=== PATIENT | male | born 1960 | race American Indian/Alaskan Native ===

== ENCOUNTER 2018-02-27 17:17 | Inpatient (IN) | payer MEDICAID ==
[2018-02-27] MEDS ORDERED: ATIVAN ONE ×2 (18:17→18:32)
[2018-02-27] MEDS ORDERED: ATIVAN IM ONE (19:00)
[2018-02-27] MEDS ORDERED: ATIVAN IV ONE (19:30)
[2018-02-27] MEDS ORDERED: ATIVAN IV PRN (19:42)
[2018-02-27] MEDS ORDERED: VITAMIN B-1 100 MG, FOLVITE 1 MG, INFUVITE 10 ML, MAGNESIUM SULFATE 2 GM in NACL 0.9% 1... IV ONE (19:43)
[2018-02-27] MEDS ORDERED: KEPPRA 1,000 MG/NS 0.75% 100ML 1,000 MG/100 ML BAG IV ONE (19:43)
--- NOTE | 2018-02-27 19:52 | Emergency Department Report ---
HPI - General Chief Complaint: Seizure Time Seen by Provider: 02/27/18 19:32 - HPI HPI: Room 25 The patient is 58-year-old male presenting with chief complaint seizure. The patient has a history of heavy alcohol use is reported the patient last consumed yesterday. Family was at home when the "heard a noise." When they went to investigate they felt the patient have any generalized tonic-clonic seizure. EMS was called and transported the patient to the ED. The patient was reportedly combative/agitated requiring Ativan. Family states the patient has a history of alcoholism and usually consumes 5 beers and "a fifth" of wine daily. Patient last consumed yesterday Location: Central nervous system Duration: [See above] Quality: Generalized tonic-clonic Severity: Moderate Modifying factors: [see above] Context: [see above] Mode of transportation: [not driving] ED Past Medical Hx - Past Medical History Hx Hypertension: Yes Hx Seizures: Yes Additional medical history: SEIZURE, ETOH - Family History Family history: no significant - Social History Smoking Status: Never Smoker Substance Use Type: None (denies illicit drug use), Alcohol (consumes 5 beers and "a fifth" of wine daily) - Medications Home Medications: Home Medications Medication Instructions Recorded Confirmed Last Taken Type Folic Acid [Folvite] 1 mg PO QDAY #30 tablet 02/20/18 Unknown Rx Hydrochlorothiazide [HCTZ] 12.5 mg PO QDAY #30 capsule 02/20/18 Unknown Rx Multivitamin Tab [Multiple Vitamin 1 each PO QDAY #30 tablet 02/20/18 Unknown Rx TAB (Theragran)] Thiamine [Vitamin B-1] 100 mg PO QDAY #30 tablet 02/20/18 Unknown Rx amLODIPine [Norvasc] 10 mg PO QDAY #30 tablet 02/20/18 Unknown Rx levETIRAcetam [Keppra TAB] 750 mg PO BID #60 tablet 02/20/18 Unknown Rx ED Review of Systems ROS: Stated complaint: SEIZURE Other details as noted in HPI Constitutional: no symptoms reported Eyes: denies: eye pain ENT: denies: throat pain Cardiovascular: denies: chest pain Gastrointestinal: denies: abdominal pain Genitourinary: denies: dysuria Musculoskeletal: denies: back pain Neurological: other (seizure). denies: headache Physical Exam - Physical Exam Vital Signs: Vital Signs 02/27/18 02/27/18 02/27/18 15:31 15:36 15:40 Temperature Pulse Rate Respiratory Rate Blood Pressure 137/89 137/89 137/89 O2 Sat by Pulse 94 95 96 Oximetry 02/27/18 02/27/18 02/27/18 15:46 15:50 15:56 Temperature Pulse Rate Respiratory Rate Blood Pressure 137/89 137/89 137/89 O2 Sat by Pulse 96 96 95 Oximetry 02/27/18 02/27/18 02/27/18 16:00 16:06 16:10 Temperature Pulse Rate Respiratory Rate Blood Pressure 137/89 137/89 137/89 O2 Sat by Pulse 97 96 96 Oximetry 02/27/18 02/27/18 02/27/18 16:16 16:20 16:26 Temperature Pulse Rate Respiratory Rate Blood Pressure 137/89 137/89 137/89 O2 Sat by Pulse 97 97 97 Oximetry 02/27/18 02/27/18 02/27/18 16:30 16:36 16:40 Temperature Pulse Rate Respiratory Rate Blood Pressure 137/89 137/89 137/89 O2 Sat by Pulse 97 93 97 Oximetry 02/27/18 02/27/18 02/27/18 16:46 16:50 16:56 Temperature Pulse Rate Respiratory Rate Blood Pressure 137/89 137/89 137/89 O2 Sat by Pulse 97 98 97 Oximetry 02/27/18 02/27/18 02/27/18 17:00 17:06 17:10 Temperature Pulse Rate Respiratory Rate Blood Pressure 137/89 137/89 137/89 O2 Sat by Pulse 97 96 96 Oximetry 02/27/18 02/27/18 02/27/18 17:16 17:20 18:27 Temperature Pulse Rate 120 H Respiratory 25 H Rate Blood Pressure 137/89 137/89 137/89 O2 Sat by Pulse 97 97 Oximetry 02/27/18 02/27/18 02/27/18 18:30 18:36 18:40 Temperature Pulse Rate 122 H 116 H 108 H Respiratory 16 24 21 Rate Blood Pressure 137/89 164/109 164/109 O2 Sat by Pulse 97 96 98 Oximetry 02/27/18 02/27/18 02/27/18 18:45 18:50 18:56 Temperature Pulse Rate 107 H 104 H 105 H Respiratory 21 22 21 Rate Blood Pressure 160/102 160/102 160/102 O2 Sat by Pulse 97 97 97 Oximetry 02/27/18 02/27/18 02/27/18 19:00 19:06 19:10 Temperature Pulse Rate 104 H 102 H 100 H Respiratory 23 19 21 Rate Blood Pressure 152/99 152/99 152/99 O2 Sat by Pulse 97 97 98 Oximetry 02/27/18 02/27/18 19:15 19:20 Temperature 98.9 F Pulse Rate 104 H 104 H Respiratory 21 22 Rate Blood Pressure 155/100 155/100 O2 Sat by Pulse 97 96 Oximetry Physical Exam: GENERAL: The patient is well-developed well-nourished male lying on stretcher not appearing to be in acute distress. [] HEENT: Normocephalic. Atraumatic. Extraocular motions are intact. Patient has moist mucous membranes. NECK: Supple. Trachea midline CHEST/LUNGS: Clear to auscultation. There is no respiratory distress noted. HEART/CARDIOVASCULAR: Regular. There is tachycardia. There is no gallop rub or murmur. ABDOMEN: Abdomen is soft, nontender. Patient has normal bowel sounds. There is no abdominal distention. SKIN: There is no rash. There is no edema. There is no diaphoresis. NEURO: The patient is awake and oriented. Patient seen somewhat sedate secondary to Ativan administration. The patient offers intermittently with cranial nerve exam. Cranial nerves II through XII grossly intact. The patient has no focal neurologic deficits. The patient has normal speech. MUSCULOSKELETAL: There is no evidence of acute injury. ED Course Vital Signs 02/27/18 02/27/18 02/27/18 15:31 15:36 15:40 Temperature Pulse Rate Respiratory Rate Blood Pressure 137/89 137/89 137/89 O2 Sat by Pulse 94 95 96 Oximetry 02/27/18 02/27/18 02/27/18 15:46 15:50 15:56 Temperature Pulse Rate Respiratory Rate Blood Pressure 137/89 137/89 137/89 O2 Sat by Pulse 96 96 95 Oximetry 02/27/18 02/27/18 02/27/18 16:00 16:06 16:10 Temperature Pulse Rate Respiratory Rate Blood Pressure 137/89 137/89 137/89 O2 Sat by Pulse 97 96 96 Oximetry 02/27/18 02/27/18 02/27/18 16:16 16:20 16:26 Temperature Pulse Rate Respiratory Rate Blood Pressure 137/89 137/89 137/89 O2 Sat by Pulse 97 97 97 Oximetry 02/27/18 02/27/18 02/27/18 16:30 16:36 16:40 Temperature Pulse Rate Respiratory Rate Blood Pressure 137/89 137/89 137/89 O2 Sat by Pulse 97 93 97 Oximetry 02/27/18 02/27/18 02/27/18 16:46 16:50 16:56 Temperature Pulse Rate Respiratory Rate Blood Pressure 137/89 137/89 137/89 O2 Sat by Pulse 97 98 97 Oximetry 02/27/18 02/27/18 02/27/18 17:00 17:06 17:10 Temperature Pulse Rate Respiratory Rate Blood Pressure 137/89 137/89 137/89 O2 Sat by Pulse 97 96 96 Oximetry 02/27/18 02/27/18 02/27/18 17:16 17:20 18:27 Temperature Pulse Rate 120 H Respiratory 25 H Rate Blood Pressure 137/89 137/89 137/89 O2 Sat by Pulse 97 97 Oximetry 02/27/18 02/27/18 02/27/18 18:30 18:36 18:40 Temperature Pulse Rate 122 H 116 H 108 H Respiratory 16 24 21 Rate Blood Pressure 137/89 164/109 164/109 O2 Sat by Pulse 97 96 98 Oximetry 02/27/18 02/27/18 02/27/18 18:45 18:50 18:56 Temperature Pulse Rate 107 H 104 H 105 H Respiratory 21 22 21 Rate Blood Pressure 160/102 160/102 160/102 O2 Sat by Pulse 97 97 97 Oximetry 02/27/18 02/27/18 02/27/18 19:00 19:06 19:10 Temperature Pulse Rate 104 H 102 H 100 H Respiratory 23 19 21 Rate Blood Pressure 152/99 152/99 152/99 O2 Sat by Pulse 97 97 98 Oximetry 02/27/18 02/27/18 19:15 19:20 Temperature 98.9 F Pulse Rate 104 H 104 H Respiratory 21 22 Rate Blood Pressure 155/100 155/100 O2 Sat by Pulse 97 96 Oximetry ED Medical Decision Making - Lab Data Result diagrams: 02/27/18 19:43 02/27/18 19:43 Laboratory Tests 02/27/18 02/27/18 02/27/18 19:43 19:43 19:43 WBC 7.2 RBC 3.88 Hgb 13.4 Hct 39.5 MCV 102 H MCH 34 H MCHC 34 RDW 14.3 Plt Count 325 Sodium 138 Potassium 3.2 L Chloride 92.3 L Carbon Dioxide 24 Anion Gap 25 BUN 9 Creatinine 0.8 Estimated GFR > 60 BUN/Creatinine Ratio 11 Glucose 120 H Calcium 9.6 Magnesium 1.80 Total Bilirubin 0.80 AST 49 H ALT 47 Alkaline Phosphatase 88 Total Creatine Kinase 318 H Total Protein 7.9 Albumin 4.3 Albumin/Globulin Ratio 1.2 Plasma/Serum Alcohol < 0.01 - Radiology Data Radiology results: report reviewed (CT head), image reviewed (CT head) [facility] [address] [place] [address] Cat Scan Report Signed Patient: RIVAS JAMIL MR#: [id number] : 1959 Acct:[id number] Age/Sex: 58 / M ADM Date: 02/27/18 Loc: ED Attending Dr: Ordering Physician: DANIEL ELIAS MD Date of Service: 02/27/18 Procedure(s): CT head/brain wo con Accession Number(s): [id number] cc: DANIEL ELIAS MD FINAL REPORT PROCEDURE: CT HEAD/BRAIN WO CON TECHNIQUE: Computerized tomography of the head was performed without contrast material. HISTORY: alcohol withdrawal, seizure COMPARISON: No prior studies are available for comparison. FINDINGS: Skull and scalp: Normal. Paranasal sinuses: Small air-fluid level is noted in the right maxillary sinus.. Ventricles and subarachnoid spaces: Are prominent consistent with cerebral atrophy appropriate for patient's age.. Cerebrum: Moderate degree bilateral cerebral nonspecific white matter hypodensity is noted most likely representing chronic microangiopathy. Old lacunar infarcts are noted involving bilateral basal ganglia.. An acute intra-axial or extra-axial hemorrhage is not identified. There is no mass effect.. Cerebellum and brainstem: No evidence of hemorrhage, acute infarction or mass. Vasculature: Normal. Comments: None. IMPRESSION: Old lacunar infarcts bilateral basal ganglia No acute intracranial abnormality Small air-fluid level in the right maxillary sinus is suspicious for acute right maxillary sinusitis. Transcribed By: [facility] Dictated By: LEORA NAVARRO Electronically Authenticated By: LEORA NAVARRO Signed Date/Time: 02/27/182148 DD/ 48 TD/TT: 02/27/182148 - Differential Diagnosis alcohol withdrawal Critical care attestation.: If time is entered above; I have spent that time in minutes in the direct care of this critically ill patient, excluding procedure time. ED Disposition Clinical Impression: Alcohol withdrawal seizure, Sinusitis Disposition: OP ADMIT IP TO THIS HOSP Is pt being admited?: Yes Does the pt Need Aspirin: Yes Condition: Fair Referrals: PRIMARY CARE,MD [Primary Care Provider] - 3-5 Days Time of Disposition: 22:11 (hospitalist paged (Dr Nanette Riley))
[2018-02-27 20:03] LABS: Hematocrit 39.5 % (35.5-45.6); Hemoglobin 13.4 gm/dl (11.8-15.2); Mean Corpuscular HGB Conc 34 % (32-34); Mean Corpuscular Hemoglobin 34 pg (28-32); Mean Corpuscular Volume 102 fl (84-94); Platelet Count 325 K/mm3 (140-440); Red Blood Count 3.88 M/mm3 (3.65-5.03); Red Cell Distribution Width 14.3 % (13.2-15.2)
[2018-02-27] MEDS ORDERED: CATAPRES PO ONE (20:10)
[2018-02-27] MEDS: ATIVAN IV PRN (20:28)
[2018-02-27 21:10] LABS: Alanine Aminotransferase 47 units/L (7-56); Albumin 4.3 g/dL (3.9-5); BUN/Creatinine Ratio 11; Blood Urea Nitrogen 9 mg/dL (9-20); Calcium 9.6 mg/dL (8.4-10.2); Hemolysis Index 9
--- NOTE | 2018-02-27 21:53 | Cat Scan Report ---
FINAL REPORT PROCEDURE: CT HEAD/BRAIN WO CON TECHNIQUE: Computerized tomography of the head was performed without contrast material. HISTORY: alcohol withdrawal, seizure COMPARISON: No prior studies are available for comparison. FINDINGS: Skull and scalp: Normal. Paranasal sinuses: Small air-fluid level is noted in the right maxillary sinus.. Ventricles and subarachnoid spaces: Are prominent consistent with cerebral atrophy appropriate for patient's age.. Cerebrum: Moderate degree bilateral cerebral nonspecific white matter hypodensity is noted most likely representing chronic microangiopathy. Old lacunar infarcts are noted involving bilateral basal ganglia.. An acute intra-axial or extra-axial hemorrhage is not identified. There is no mass effect.. Cerebellum and brainstem: No evidence of hemorrhage, acute infarction or mass. Vasculature: Normal. Comments: None. IMPRESSION: Old lacunar infarcts bilateral basal ganglia No acute intracranial abnormality Small air-fluid level in the right maxillary sinus is suspicious for acute right maxillary sinusitis.
[2018-02-27] MEDS ORDERED: ROCEPHIN/NS 1 GM/50 ML 1 GM/50 ML BAG IV ONE (22:10)
[2018-02-27] MEDS ORDERED: ASPIRIN PO ONE (22:12)
[2018-02-27] MEDS ORDERED: cefTRIAXone 1 GM in NACL 0.9% 20 ML IV ONE (22:15)
[2018-02-27] MEDS ORDERED: TYLENOL PO PRN (23:35)
[2018-02-27] MEDS ORDERED: ZOFRAN IV PRN (23:35)
[2018-02-27] MEDS ORDERED: SODIUM CHLORIDE FLUSH SYRINGE 10 ML IV PRN (23:35)
--- NOTE | 2018-02-27 23:39 | History and Physical Report ---
History of Present Illness Date of examination: 02/27/18 History of present illness: 58-year-old man with history of hypertension, alcohol abuse comes in for seizure at home. In the ER, he had another seizure and was given ativan, he is sedated. Old chart reviewed, ROS unobtainable. PAST MEDICAL HISTORY: hypertension, alcohol abuse PAST SURGICAL HISTORY: Unknown SOCIAL HISTORY: Unknown FAMILY HISTORY: Unknown Medications and Allergies Allergies Allergy/AdvReac Type Severity Reaction Status Date / Time No Known Allergies Allergy Unverified 02/16/18 10:18 Home Medications Medication Instructions Recorded Confirmed Last Taken Type Folic Acid [Folvite] 1 mg PO QDAY #30 tablet 02/20/18 Unknown Rx Hydrochlorothiazide [HCTZ] 12.5 mg PO QDAY #30 capsule 02/20/18 Unknown Rx Multivitamin Tab [Multiple Vitamin 1 each PO QDAY #30 tablet 02/20/18 Unknown Rx TAB (Theragran)] Thiamine [Vitamin B-1] 100 mg PO QDAY #30 tablet 02/20/18 Unknown Rx amLODIPine [Norvasc] 10 mg PO QDAY #30 tablet 02/20/18 Unknown Rx levETIRAcetam [Keppra TAB] 750 mg PO BID #60 tablet 02/20/18 Unknown Rx Active Meds: Active Medications Thiamine HCl 100 mg/ Folic Acid 1 mg/ Multivitamins/Minerals 10 ml/ Magnesium Sulfate 2 gm/ Sodium Chloride 1,015.2 mls @ 250 mls/hr IV ONCE ONE Stop: 02/27/18 23:46 Last Admin: 02/27/18 20:46 Dose: 250 mls/hr Lorazepam (Ativan) 2 mg IV Q1HR PRN PRN Reason: CIWA-Ar 8-15 Last Admin: 02/27/18 20:28 Dose: 2 mg Lorazepam (Ativan) 4 mg IV Q1HR PRN PRN Reason: CIWA-Ar 16-25 Lorazepam (Ativan) 4 mg IV Q15MIN PRN PRN Reason: CIWA-Ar >25 Exam - Physical Exam Narrative exam: Gen. appearance: Patient lying in bed in no acute distress, on BIPAP HEENT: Normocephalic/atraumatic, pupils equal round reactive to light, unable to do extra occular movement, no scleral icterus, no JVD or thyromegaly or nodule, neck is supple, mucous membrane moist, no erythema or exudate Heart: S1-S2, regular rate and rhythm Lungs:Clear anteriorly, breathing comfortable Abdomen: Positive bowel sounds, nontender, nondistended, no organomegaly Extremities: No edema, cyanosis, clubbing Neuro:: sedated Skin: No rash, nodules, warm dry - Constitutional Vitals: Temp Pulse Resp BP Pulse Ox 98.9 F 104 H 20 163/105 97 02/27/18 19:20 02/27/18 19:40 02/27/18 20:30 02/27/18 20:00 02/27/18 20:30 Results - Labs CBC & Chem 7: 02/27/18 19:43 02/27/18 19:43 Labs: Abnormal lab results 02/27/18 02/27/18 Range/Units 19:43 19:43 MCV 102 H (84-94) fl MCH 34 H (28-32) pg Potassium 3.2 L (3.6-5.0) mmol/L Chloride 92.3 L (98-107) mmol/L Glucose 120 H (75-100) mg/dL AST 49 H (5-40) units/L Total Creatine Kinase 318 H (55-170) units/L - Imaging and Cardiology CT Scan - head: report reviewed Assessment and Plan Assessment Alcohol withdrawal/DTS Alcohol Abuse Hypertension hypokalemia Plan Start IV fluid, CIWA protocol with IV ativan, folic acid, thiamine Replete potassium, check magnesium IV hydralazine for blood pressure control DVt prophalaxis
[2018-02-28] MEDS: ATIVAN IV PRN ×4 (01:24→14:49)
[2018-02-28] MEDS: APRESOLINE IV PRN ×2 (01:24→21:35)
[2018-02-28 07:20] LABS: Basophils # (Auto) 0.1 K/mm3 (0.0-0.1); Basophils % (Auto) 0.8 % (0.0-1.8); Eosinophils % (Auto) 0.4 % (0.0-4.3); Hematocrit 38.4 % (35.5-45.6); Hemoglobin 12.7 gm/dl (11.8-15.2); Lymphocytes # (Auto) 1.2 K/mm3 (1.2-5.4); Lymphocytes % (Auto) 17.2 % (13.4-35.0); Mean Corpuscular HGB Conc 33 % (32-34); Mean Corpuscular Hemoglobin 34 pg (28-32); Mean Corpuscular Volume 103 fl (84-94); Monocytes # (Auto) 0.6 K/mm3 (0.0-0.8); Monocytes % (Auto) 9.5 % (0.0-7.3); Platelet Count 313 K/mm3 (140-440); Red Blood Count 3.74 M/mm3 (3.65-5.03); Red Cell Distribution Width 14.2 % (13.2-15.2)
[2018-02-28 07:42] LABS: BUN/Creatinine Ratio 5; Blood Urea Nitrogen 2 mg/dL (9-20); Calcium 8.8 mg/dL (8.4-10.2); Hemolysis Index 2
[2018-02-28] MEDS: FOLVITE PO SCH (10:01)
[2018-02-28] MEDS: VITAMIN B-1 PO SCH (10:01)
[2018-02-28] MEDS: NACL 0.9% 1000 ML 1,000 ML IV SCH ×2 (10:02→21:36)
[2018-02-28] MEDS: SODIUM CHLORIDE FLUSH SYRINGE 10 ML IV SCH ×2 (10:02→21:40)
--- NOTE | 2018-02-28 15:29 | Progress Note ---
Assessment and Plan Assessment and plan: 58-year-old man with history of hypertension, alcohol abuse comes in for seizure at home. In the ER, he had another seizure and was given ativan, he is sedated. Old chart reviewed, ROS unobtainable. PAST MEDICAL HISTORY: hypertension, alcohol abuse Assessment Alcohol withdrawal/DTS Alcohol Abuse Hypertension hypokalemia Plan Start IV fluid, CIWA protocol with IV ativan, folic acid, thiamine Replete potassium, check magnesium IV hydralazine for blood pressure control DVt prophalaxis Hospitalist Physical - Constitutional Vitals: Temp Pulse Resp BP Pulse Ox 98.3 F 75 18 152/100 97 02/28/18 11:47 02/28/18 11:47 02/28/18 11:47 02/28/18 11:47 02/28/18 11:47 Results - Labs CBC & Chem 7: 02/28/18 06:46 02/28/18 06:46 Labs: Laboratory Last Values WBC 6.8 K/mm3 (4.5-11.0) 02/28/18 06:46 RBC 3.74 M/mm3 (3.65-5.03) 02/28/18 06:46 Hgb 12.7 gm/dl (11.8-15.2) 02/28/18 06:46 Hct 38.4 % (35.5-45.6) 02/28/18 06:46 MCV 103 fl (84-94) H 02/28/18 06:46 MCH 34 pg (28-32) H 02/28/18 06:46 MCHC 33 % (32-34) 02/28/18 06:46 RDW 14.2 % (13.2-15.2) 02/28/18 06:46 Plt Count 313 K/mm3 (140-440) 02/28/18 06:46 Lymph % (Auto) 17.2 % (13.4-35.0) 02/28/18 06:46 [place] % (Auto) 9.5 % (0.0-7.3) H 02/28/18 06:46 Eos % (Auto) 0.4 % (0.0-4.3) 02/28/18 06:46 Baso % (Auto) 0.8 % (0.0-1.8) 02/28/18 06:46 Lymph # 1.2 K/mm3 (1.2-5.4) 02/28/18 06:46 [place] # 0.6 K/mm3 (0.0-0.8) 02/28/18 06:46 Eos # 0.0 K/mm3 (0.0-0.4) 02/28/18 06:46 Baso # 0.1 K/mm3 (0.0-0.1) 02/28/18 06:46 Seg Neutrophils % 72.1 % (40.0-70.0) H 02/28/18 06:46 Seg Neutrophils # 4.9 K/mm3 (1.8-7.7) 02/28/18 06:46 Sodium 138 mmol/L (137-145) 02/28/18 06:46 Potassium 3.0 mmol/L (3.6-5.0) L 02/28/18 06:46 Chloride 92.5 mmol/L (98-107) L 02/28/18 06:46 Carbon Dioxide 28 mmol/L (22-30) 02/28/18 06:46 Anion Gap 21 mmol/L 02/28/18 06:46 BUN 2 mg/dL (9-20) L 02/28/18 06:46 Creatinine 0.4 mg/dL (0.8-1.5) L 02/28/18 06:46 Estimated GFR > 60 ml/min 02/28/18 06:46 BUN/Creatinine Ratio 5 % 02/28/18 06:46 Glucose 94 mg/dL (75-100) 02/28/18 06:46 Calcium 8.8 mg/dL (8.4-10.2) 02/28/18 06:46 Magnesium 1.80 mg/dL (1.7-2.3) 02/27/18 19:43 Total Bilirubin 0.80 mg/dL (0.1-1.2) 02/27/18 19:43 AST 49 units/L (5-40) H 02/27/18 19:43 ALT 47 units/L (7-56) 02/27/18 19:43 Alkaline Phosphatase 88 units/L (35-129) 02/27/18 19:43 Total Creatine Kinase 318 units/L (55-170) H 02/27/18 19:43 Total Protein 7.9 g/dL (6.3-8.2) 02/27/18 19:43 Albumin 4.3 g/dL (3.9-5) 02/27/18 19:43 Albumin/Globulin Ratio 1.2 % 02/27/18 19:43 Plasma/Serum Alcohol < 0.01 % (0-0.07) 02/27/18 19:43
[2018-02-28] MEDS ORDERED: KCL 40 MEQ in NACL 0.45% 500 ML IV SCH (15:30)
[2018-02-28] MEDS: LIBRIUM PO SCH ×2 (17:13→21:35)
[2018-02-28] MEDS: K-DUR PO SCH (17:13)
[2018-03-01] MEDS: APRESOLINE IV PRN ×2 (01:17→20:04)
[2018-03-01] MEDS: ATIVAN IV PRN (04:06)
[2018-03-01] MEDS: NACL 0.9% 1000 ML 1,000 ML IV SCH (06:59)
[2018-03-01] MEDS: VITAMIN B-1 PO SCH (11:14)
[2018-03-01] MEDS: LIBRIUM PO SCH ×4 (11:15→23:24)
[2018-03-01] MEDS: K-DUR PO SCH (11:15)
[2018-03-01] MEDS: SODIUM CHLORIDE FLUSH SYRINGE 10 ML IV SCH ×2 (11:15→23:20)
[2018-03-01] MEDS: FOLVITE PO SCH (11:15)
--- NOTE | 2018-03-01 13:16 | Progress Note ---
Hospitalist Physical - Constitutional Vitals: Temp Pulse Resp BP Pulse Ox 98.3 F 100 H 18 132/107 98 03/01/18 08:18 03/01/18 08:18 03/01/18 08:18 03/01/18 08:18 03/01/18 10:10 Results - Labs CBC & Chem 7: 02/28/18 06:46 02/28/18 06:46 Labs: Laboratory Last Values WBC 6.8 K/mm3 (4.5-11.0) 02/28/18 06:46 RBC 3.74 M/mm3 (3.65-5.03) 02/28/18 06:46 Hgb 12.7 gm/dl (11.8-15.2) 02/28/18 06:46 Hct 38.4 % (35.5-45.6) 02/28/18 06:46 MCV 103 fl (84-94) H 02/28/18 06:46 MCH 34 pg (28-32) H 02/28/18 06:46 MCHC 33 % (32-34) 02/28/18 06:46 RDW 14.2 % (13.2-15.2) 02/28/18 06:46 Plt Count 313 K/mm3 (140-440) 02/28/18 06:46 Lymph % (Auto) 17.2 % (13.4-35.0) 02/28/18 06:46 [place] % (Auto) 9.5 % (0.0-7.3) H 02/28/18 06:46 Eos % (Auto) 0.4 % (0.0-4.3) 02/28/18 06:46 Baso % (Auto) 0.8 % (0.0-1.8) 02/28/18 06:46 Lymph # 1.2 K/mm3 (1.2-5.4) 02/28/18 06:46 [place] # 0.6 K/mm3 (0.0-0.8) 02/28/18 06:46 Eos # 0.0 K/mm3 (0.0-0.4) 02/28/18 06:46 Baso # 0.1 K/mm3 (0.0-0.1) 02/28/18 06:46 Seg Neutrophils % 72.1 % (40.0-70.0) H 02/28/18 06:46 Seg Neutrophils # 4.9 K/mm3 (1.8-7.7) 02/28/18 06:46 Sodium 138 mmol/L (137-145) 02/28/18 06:46 Potassium 3.0 mmol/L (3.6-5.0) L 02/28/18 06:46 Chloride 92.5 mmol/L (98-107) L 02/28/18 06:46 Carbon Dioxide 28 mmol/L (22-30) 02/28/18 06:46 Anion Gap 21 mmol/L 02/28/18 06:46 BUN 2 mg/dL (9-20) L 02/28/18 06:46 Creatinine 0.4 mg/dL (0.8-1.5) L 02/28/18 06:46 Estimated GFR > 60 ml/min 02/28/18 06:46 BUN/Creatinine Ratio 5 % 02/28/18 06:46 Glucose 94 mg/dL (75-100) 02/28/18 06:46 Calcium 8.8 mg/dL (8.4-10.2) 02/28/18 06:46 Magnesium 1.80 mg/dL (1.7-2.3) 02/27/18 19:43 Total Bilirubin 0.80 mg/dL (0.1-1.2) 02/27/18 19:43 AST 49 units/L (5-40) H 02/27/18 19:43 ALT 47 units/L (7-56) 02/27/18 19:43 Alkaline Phosphatase 88 units/L (35-129) 02/27/18 19:43 Total Creatine Kinase 318 units/L (55-170) H 02/27/18 19:43 Total Protein 7.9 g/dL (6.3-8.2) 02/27/18 19:43 Albumin 4.3 g/dL (3.9-5) 02/27/18 19:43 Albumin/Globulin Ratio 1.2 % 02/27/18 19:43 Plasma/Serum Alcohol < 0.01 % (0-0.07) 02/27/18 19:43
[2018-03-01 16:06] LABS: BUN/Creatinine Ratio 11; Blood Urea Nitrogen 8 mg/dL (9-20); Calcium 8.8 mg/dL (8.4-10.2); Hemolysis Index 124
[2018-03-02] MEDS: LIBRIUM PO SCH ×4 (01:37→21:58)
[2018-03-02] MEDS: APRESOLINE IV PRN (06:23)
[2018-03-02] MEDS: NACL 0.9% 1000 ML 1,000 ML IV SCH ×2 (07:55→18:17)
--- NOTE | 2018-03-02 08:05 | Progress Note ---
Hospitalist Physical - Constitutional Vitals: Temp Pulse Resp BP Pulse Ox 97.6 F 88 20 161/102 98 03/02/18 05:44 03/02/18 07:57 03/02/18 05:44 03/02/18 06:23 03/02/18 05:44 Results - Labs CBC & Chem 7: 02/28/18 06:46 03/01/18 15:27 Labs: Laboratory Last Values WBC 6.8 K/mm3 (4.5-11.0) 02/28/18 06:46 RBC 3.74 M/mm3 (3.65-5.03) 02/28/18 06:46 Hgb 12.7 gm/dl (11.8-15.2) 02/28/18 06:46 Hct 38.4 % (35.5-45.6) 02/28/18 06:46 MCV 103 fl (84-94) H 02/28/18 06:46 MCH 34 pg (28-32) H 02/28/18 06:46 MCHC 33 % (32-34) 02/28/18 06:46 RDW 14.2 % (13.2-15.2) 02/28/18 06:46 Plt Count 313 K/mm3 (140-440) 02/28/18 06:46 Lymph % (Auto) 17.2 % (13.4-35.0) 02/28/18 06:46 [place] % (Auto) 9.5 % (0.0-7.3) H 02/28/18 06:46 Eos % (Auto) 0.4 % (0.0-4.3) 02/28/18 06:46 Baso % (Auto) 0.8 % (0.0-1.8) 02/28/18 06:46 Lymph # 1.2 K/mm3 (1.2-5.4) 02/28/18 06:46 [place] # 0.6 K/mm3 (0.0-0.8) 02/28/18 06:46 Eos # 0.0 K/mm3 (0.0-0.4) 02/28/18 06:46 Baso # 0.1 K/mm3 (0.0-0.1) 02/28/18 06:46 Seg Neutrophils % 72.1 % (40.0-70.0) H 02/28/18 06:46 Seg Neutrophils # 4.9 K/mm3 (1.8-7.7) 02/28/18 06:46 D-Dimer 1149.25 ng/mlDDU (0-234) H 03/01/18 15:27 Sodium 134 mmol/L (137-145) L 03/01/18 15:27 Potassium 4.4 mmol/L (3.6-5.0) D 03/01/18 15:27 Chloride 93.7 mmol/L (98-107) L 03/01/18 15:27 Carbon Dioxide 26 mmol/L (22-30) 03/01/18 15:27 Anion Gap 19 mmol/L 03/01/18 15:27 BUN 8 mg/dL (9-20) L 03/01/18 15:27 Creatinine 0.7 mg/dL (0.8-1.5) L D 03/01/18 15:27 Estimated GFR > 60 ml/min 03/01/18 15:27 BUN/Creatinine Ratio 11 % 03/01/18 15:27 Glucose 97 mg/dL (75-100) 03/01/18 15:27 Calcium 8.8 mg/dL (8.4-10.2) 03/01/18 15:27 Phosphorus 2.30 mg/dL (2.5-4.5) L 03/01/18 15:27 Magnesium 1.90 mg/dL (1.7-2.3) 03/01/18 15:27 Total Bilirubin 0.80 mg/dL (0.1-1.2) 02/27/18 19:43 AST 49 units/L (5-40) H 02/27/18 19:43 ALT 47 units/L (7-56) 02/27/18 19:43 Alkaline Phosphatase 88 units/L (35-129) 02/27/18 19:43 Total Creatine Kinase 318 units/L (55-170) H 02/27/18 19:43 Total Protein 7.9 g/dL (6.3-8.2) 02/27/18 19:43 Albumin 4.3 g/dL (3.9-5) 02/27/18 19:43 Albumin/Globulin Ratio 1.2 % 02/27/18 19:43 Plasma/Serum Alcohol < 0.01 % (0-0.07) 02/27/18 19:43
[2018-03-02] MEDS: ATIVAN IV PRN (08:50)
--- NOTE | 2018-03-02 09:44 | Cat Scan Report ---
CTA CHEST INDICATION: Tachycardia. COMPARISON: None similar. FINDINGS: Chest CTA performed following intravenous administration of 100 cc of Omnipaque 350. Rotational MIP's also obtained. Normal heart size. No effusions. Mild aortic arch calcifications. No aortic aneurysm or dissection. As on axial series 2, images 77-80, subtle nonocclusive peripheral/eccentric filling defects noted within left lower lobe branching pulmonary arteries for a short distance and may represent residual chronic PE in appropriate setting, amongst others. No other definite focal suspicious pulmonary arterial filling defects, though opacification/assessment of very distal/peripheral branches suboptimal. No size significant adenopathy. Patent central airway. Normal imaged thyroid. Mild right lower lobe atelectasis noted posteriorly. Biapical peripheral bullae, right more than left with the largest approximately 4 cm posteriorly on axial image 21, series 2. Mild nonspecific distal esophageal wall prominence/thickening, not excluded for gastroesophageal reflux and/or hiatal hernia, amongst others. Right pectoralis muscles incidentally noted smaller/atrophic relative to the left as on axial images 42-88, amongst others with an approximately 5 x 4.3 cm lateral fatty lipoma-like prominence in the right axilla as on axial image 37 with few small intrinsic lymph nodes measuring up to 1.2 cm as on axial image 29. Imaged upper abdomen demonstrates fatty liver and subtle nonspecific bilateral perinephric stranding. Approximately 80% T6 and approximately 20% T7 vertebral body compression fractures noted as also Schmorl's nodes along their endplates. Prominent osteophyte/bony bridging at T6-T7 on the right and T7-T8 on the left also seen, coronal image 175. Some sclerosis/cortical thickening also extends along approximately 8 cm segment of right seventh rib posteriorly as on axial image 57. Multiple bilateral old healed rib deformities also noted. Demineralized bones with few other degenerative changes. CONCLUSION: 1. Minimal peripheral/eccentric nonocclusive left lower lobe pulmonary arterial filling defects/pulmonary embolism, as described. Please also correlate clinically and with similar prior imaging, if available. 2. Mild right basilar atelectasis, new since 02/16/2018 CT. 3. Various other findings as asymmetric right pectoralis muscle atrophy, distal esophageal thickening, fatty liver and mid thoracic spine compression fractures, amongst others, as detailed above. I phoned the above results to Ms. Hang Parkinson, patient's nurse, 9:25 AM, 03/02/2018. Thank you for the opportunity to participate in this patient's care.
[2018-03-02] MEDS: FOLVITE PO SCH (10:28)
[2018-03-02] MEDS: XARELTO PO SCH ×2 (10:29→17:00)
[2018-03-02] MEDS: K-DUR PO SCH (10:29)
[2018-03-02] MEDS: SODIUM CHLORIDE FLUSH SYRINGE 10 ML IV SCH ×2 (10:29→21:59)
[2018-03-02] MEDS: VITAMIN B-1 PO SCH (10:29)
[2018-03-03] MEDS: APRESOLINE IV PRN (02:29)
[2018-03-03] MEDS: NACL 0.9% 1000 ML 1,000 ML IV SCH (06:18)
[2018-03-03] MEDS: VITAMIN B-1 PO SCH (09:37)
[2018-03-03] MEDS: XARELTO PO SCH ×2 (09:37→18:29)
[2018-03-03] MEDS: FOLVITE PO SCH (09:38)
[2018-03-03] MEDS: LIBRIUM PO SCH ×2 (09:38→15:13)
[2018-03-03] MEDS: K-DUR PO SCH (09:38)
[2018-03-03] MEDS: SODIUM CHLORIDE FLUSH SYRINGE 10 ML IV SCH (09:39)
--- NOTE | 2018-03-03 12:56 | Discharge Summary ---
Providers - Providers Date of Admission: 02/27/18 23:37 Attending physician: HARLAN HART MD Primary care physician: DATABASE ANALYST Hospitalization Condition: Fair Disposition: DC-01 TO HOME OR SELFCARE Time spent for discharge: 33 minutes Core Measure Documentation - Palliative Care Palliative Care/ Comfort Measures: Not Applicable - Core Measures Any of the following diagnoses?: none Exam - Constitutional Vitals: Temp Pulse Resp BP Pulse Ox 98.6 F 82 16 141/103 99 03/03/18 08:14 03/03/18 08:14 03/03/18 08:14 03/03/18 08:14 03/03/18 08:14 General appearance: Present: no acute distress, well-nourished - EENT Eyes: Present: PERRL ENT: hearing intact, clear oral mucosa - Neck Neck: Present: supple, normal ROM - Respiratory Respiratory effort: normal Respiratory: bilateral: CTA - Cardiovascular Heart Sounds: Present: S1 & S2. Absent: rub, click - Extremities Extremities: pulses symmetrical, No edema Peripheral Pulses: within normal limits - Abdominal General gastrointestinal: Present: soft, non-tender, non-distended, normal bowel sounds Male genitourinary: Present: normal - Integumentary Integumentary: Present: clear, warm, dry - Musculoskeletal Musculoskeletal: gait normal, strength equal bilaterally - Psychiatric Psychiatric: appropriate mood/affect, intact judgment & insight - Neurologic Neurologic: CNII-XII intact, moves all extremities Plan Follow up with: PRIMARY CARE, [Primary Care Provider] - 3-5 Days Prescriptions: amLODIPine [Norvasc] 10 mg PO QDAY #30 tablet Folic Acid [Folvite] 1 mg PO QDAY #30 tablet Hydrochlorothiazide [HCTZ] 12.5 mg PO QDAY #30 capsule levETIRAcetam [Keppra TAB] 750 mg PO BID #60 tablet Multivitamin Tab [Multiple Vitamin TAB (Theragran)] 1 each PO QDAY #30 tablet Rivaroxaban [Xarelto] 15 mg PO BIDDIAB 60 Days tablet Thiamine [Vitamin B-1] 100 mg PO DAILY #30 tablet
[2018-03-03 14:15] VITALS: BP 153/99
== END 2018-03-03 16:55 | disposition left against medical advice (07) | DRG 894 ==
LOC: ED 17:17 → 4A 23:37 → 3A 03-02 13:41
PROVIDERS: ADMIT Internal Medicine; ATTEND Internal Medicine
DX: F10.239 Alcohol dependence with withdrawal, unspecified (principal); Y90.9 Presence of alcohol in blood, level not specified; R56.9 Unspecified convulsions; I10 Essential (primary) hypertension; J32.9 Chronic sinusitis, unspecified; E87.6 Hypokalemia; Z79.899 Other long term (current) drug therapy
CPT/HCPCS: 36415; 70450; 71275; 80048; 80053; 80320; 82550; 83735; 84100; 85025; 85027; 85379; 93005; 93010; 93306; 93970; G0480; J0360; J0696; J1953; J2060; J2405; J3411; J3475; J3480; J7030; Q9967

== ENCOUNTER 2019-10-06 16:39 | Inpatient (IN) | payer MEDICARE ==
[2019-10-06] MEDS ORDERED: POLYETHYLENE GLYCOL 3350 17 GM POWDER PO PRN (16:50)
[2019-10-06] MEDS ORDERED: ONDANSETRON 4 MG ODT TAB PO PRN (16:50)
[2019-10-06] MEDS: levETIRAcetam 500 MG TAB PO SCH (21:08)
[2019-10-06] MEDS: POTASSIUM CHLORIDE ER 20 MEQ TAB PO SCH (21:08)
[2019-10-07 08:00] LABS: Hematocrit 36.3 % (35.5-45.6); Hemoglobin 12.2 gm/dl (11.8-15.2); Mean Corpuscular HGB Conc 34 % (32-34); Mean Corpuscular Volume 103 fl (84-94); Platelet Count 199 K/mm3 (140-440); Red Blood Count 3.53 M/mm3 (3.65-5.03); Red Cell Distribution Width 13.9 % (13.2-15.2)
[2019-10-07 08:27] LABS: Alanine Aminotransferase 18 units/L (7-56); Albumin 3.7 g/dL (3.9-5); BUN/Creatinine Ratio 8; Blood Urea Nitrogen 6 mg/dL (9-20); Calcium 9.4 mg/dL (8.4-10.2); Hemolysis Index 11
[2019-10-07 08:51] LABS: RBC Morphology Normal; Total Cells Counted 100
[2019-10-07 08:52] LABS: Platelet Estimate Consistent w Auto
[2019-10-07] MEDS: FOLIC ACID 1 MG TAB PO SCH (09:30)
[2019-10-07] MEDS: THIAMINE 100 MG TAB PO SCH (09:30)
[2019-10-07] MEDS: MULTIVITAMINS ,THERAPEUTIC TAB PO SCH (09:30)
[2019-10-07] MEDS: amLODIPine 10 MG TAB PO SCH (09:31)
[2019-10-07] MEDS: POTASSIUM CHLORIDE ER 20 MEQ TAB PO SCH ×2 (09:31→21:58)
[2019-10-07] MEDS: levETIRAcetam 500 MG TAB PO SCH ×2 (09:32→21:58)
[2019-10-07] MEDS: ENOXAPARIN 40 MG/0.4 ML INJ SUB-Q SCH (09:33)
--- NOTE | 2019-10-07 11:38 | History and Physical Report ---
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 Patient was placed on CIWA protocol. Brain MRI showed advanced atrophy with microvascular ischemic changes but no acute abnormality identified as well. There is also a question of seizures, patient is on Keppra however neuro note was uncertain of this diagnosis. Neurology considered EEG but that is not available in the medical r ecord as of yet. Patient continued having issues with slurred speech and did have generalized weakness. He was evaluated by therapy and determined to be an appropriate candidate for rehabilitation. He lives in an extended stay hotel which presented some hesitation we were assured by molder setter that he would have family support and would have living arrangements taking care of at discharge. Patient was in the hospital for 3 days and only required 1 dose of Ativan. Will monitor for any further signs of withdrawal. Alcohol level at admission was negligible. Continue CIWA. At this point we will consider the patient to have clinical signs of a stroke after examination of him. Dysarthria still present and he does have decreased balance as opposed to previously. We'll start the patient on aspirin 81 mg and continue other secondary stroke prevention protocols. After the patient was medically stabilized they were transferred for further rehabilitation. All available medical records have been reviewed. Plan of care was discussed with patient and family. Past History Past Medical History: hypertension, seizures Past Surgical History: No surgical history Social history: single, smoking, alcohol abuse Family history: diabetes, hypertension Medications and Allergies Allergies Allergy/AdvReac Type Severity Reaction Status Date / Time No Known Allergies Allergy Unverified 02/16/18 10:18 Home Medications Medication Instructions Recorded Confirmed Last Taken Type Folic Acid [Folvite] 1 mg PO QDAY #30 tablet 08/19/18 10/07/19 10/06/19 Rx Multivitamin Tab [Multiple Vitamin 1 each PO QDAY #30 tablet 08/19/18 10/07/19 10/06/19 Rx TAB (Theragran)] Potassium Chloride [K-Dur] 20 meq PO BID #60 tablet 08/19/18 10/07/19 10/06/19 Rx Thiamine [Vitamin B-1] 100 mg PO DAILY #30 tablet 08/19/18 10/07/19 10/06/19 Rx amLODIPine 10 mg PO QDAY #30 tablet 08/19/18 10/07/19 10/06/19 Rx levETIRAcetam [Keppra TAB] 750 mg PO BID 30 Days tablet 08/19/18 10/07/19 10/06/19 Rx AtorvaSTATin [Lipitor] 40 mg PO QHS tablet 10/06/19 10/07/19 10/06/19 Rx Active Meds: Active Medications Acetaminophen (Tylenol) 650 mg PO Q6H PRN PRN Reason: Non Cardiac Pain or Temp>100.5 Amlodipine Besylate (Amlodipine) 10 mg PO QDAY [facility] Last Admin: 10/07/19 09:31 Dose: 10 mg Documented by: Atorvastatin Calcium (Lipitor) 40 mg PO QHS [facility] Last Admin: 10/06/19 21:08 Dose: 40 mg Documented by: Bisacodyl (Dulcolax) 10 mg [place] QDAY PRN PRN Reason: Constipation Enoxaparin Sodium (Enoxaparin) 40 mg SUB-Q QDAY [facility] Last Admin: 10/07/19 09:33 Dose: 40 mg Documented by: Folic Acid (Folvite) 1 mg PO QDAY [facility] Last Admin: 10/07/19 09:30 Dose: 1 mg Documented by: Levetiracetam (Keppra) 750 mg PO BID [facility] Last Admin: 10/07/19 09:32 Dose: 750 mg Documented by: Multivitamins (Theragran Tab) 1 each PO QDAY [facility] Last Admin: 10/07/19 09:30 Dose: 1 each Documented by: Ondansetron HCl (Zofran Odt) 4 mg PO Q8H PRN PRN Reason: Nausea And Vomiting Polyethylene Glycol (Miralax 3350) 17 gm PO QDAY PRN PRN Reason: Constipation Potassium Chloride (K-Dur) 20 meq PO BID [facility] Last Admin: 10/07/19 09:31 Dose: 20 meq Documented by: Thiamine HCl (Vitamin B-1) 100 mg PO QDAY [facility] Last Admin: 10/07/19 09:30 Dose: 100 mg Documented by: Review of Systems All systems: negative (ROS negative for 12 systems except as noted below with pertinent positives and negatives.) Ears, nose, mouth and throat: no decreased hearing Cardiovascular: high blood pressure, no chest pain, no leg edema Respiratory: no cough Gastrointestinal: no abdominal pain, no nausea, no vomiting Musculoskeletal: arthritis, no arm numbness/tingling, no leg numbness/tingling Integumentary: no rash, no redness Neurological: change in speech, gait dysfunction Exam - Exam Narrative exam: MUSCULOSKELETAL SPECIALTY EXAM CONSTITUTIONAL: Well developed, well nourished, appropriately groomed. RIGHT hand dominant. LYMPHATIC: No appreciable abnormalities palpable in neck RESPIRATORY: Clear to auscultation bilaterally, no increased work of breathing CARDIOVASCULAR: Regular Rate/ Rhythm, no swelling, edema or tenderness in BUE or BLE. Pulses palpable in all extremities. All extremities warm. GI: + bowel sounds, soft, NTTP, nondistended. INTEGUMENTARY: Normal, no lesion, rash, masses or bruising noted in extremities. MUSCULOSKELETAL: BUE and BLE normal without defect, crepitus, subluxation, effusion, arthritic changes or TTP. R 5 /5 L 5 /5 ROM decreased on RUE Tone normal NEURO: CN II : Visual lepe full to confrontation CN II, III : PERRL CN III, IV, : EOMI CN V : Facial sensation intact CN VII : Symmetric facial expressions and eye closure CN VIII : Hearing intact to finger rustle CN IX, X : Palate/uvula elevate midline, phonation normal CN XI : Intact shoulder shrug and head rotation CN XII : Tongue protrudes midline Sensation intact in all extremities without extinction. Reflexes 2+ bilaterally at biceps, brachioradialis and patella. No clonus at ankles. Coordination impaired. No tremor noted in 4 extremities. Naming and repetition intact. Follows 2 step commands. Aphasia not appreciated Dysarthria present Dysphagia not appreciated Neglect not appreciated POSTURE and GAIT: Sitting posture good. Balance appears reasonable. Gait deferred until seen with therapy. PSYCH: Alert, oriented x3, affect appears euthymic. Insight appears intact. - Constitutional Vitals: Vital Signs - 12hr 10/07/19 10/07/19 10/07/19 00:15 04:33 07:27 Temperature 36.7 C 36.6 C Pulse Rate 86 105 H 86 Respiratory 17 17 16 Rate Blood Pressure 120/90 133/87 Blood Pressure 132/77 [Right] O2 Sat by Pulse 99 99 98 Oximetry 10/07/19 09:31 Temperature Pulse Rate 85 Respiratory Rate Blood Pressure 133/87 Blood Pressure [Right] O2 Sat by Pulse Oximetry - Labs CBC & Chem 7: 10/07/19 07:35 10/07/19 07:35 Labs: Laboratory Results - last 72 hr 10/07/19 10/07/19 07:35 07:35 WBC 4.5 RBC 3.53 L Hgb 12.2 Hct 36.3 MCV 103 H MCH 34 H MCHC 34 RDW 13.9 Plt Count 199 [place] % (Auto) De Icer Kit Assembler Add Manual Diff Complete Total Counted 100 Seg Neuts % (Manual) 48.0 Band Neutrophils % 0 Lymphocytes % (Manual) 34.0 Reactive Lymphs % (Man) 0 Monocytes % (Manual) 15.0 H Eosinophils % (Manual) 2.0 Basophils % (Manual) 1.0 Metamyelocytes % 0 Myelocytes % 0 Promyelocytes % 0 Blast Cells % 0 Nucleated RBC % Not Reportable Seg Neutrophils # Man 2.2 Band Neutrophils # 0.0 Lymphocytes # (Manual) 1.5 Abs React Lymphs (Man) 0.0 Monocytes # (Manual) 0.7 Eosinophils # (Manual) 0.1 Basophils # (Manual) 0.0 Metamyelocytes # 0.0 Myelocytes # 0.0 Promyelocytes # 0.0 Blast Cells # 0.0 WBC Morphology Not Reportable Hypersegmented Neuts Not Reportable Hyposegmented Neuts Not Reportable Hypogranular Neuts Not Reportable Smudge Cells Not Reportable Toxic Granulation Not Reportable Toxic Vacuolation Not Reportable Dohle Bodies Not Reportable Pelger-Huet Anomaly Not Reportable Michelle Rods Not Reportable Platelet Estimate Consistent w auto Clumped Platelets Not Reportable Plt Clumps, EDTA Not Reportable Large Platelets Not Reportable Giant Platelets Not Reportable Platelet Satelliting Not Reportable Plt Morphology Comment Not Reportable RBC Morphology Normal Dimorphic RBCs Not Reportable Polychromasia Not Reportable Hypochromasia Not Reportable Poikilocytosis Not Reportable Anisocytosis Not Reportable Microcytosis Not Reportable Macrocytosis Not Reportable Spherocytes Not Reportable Pappenheimer Bodies Not Reportable Sickle Cells Not Reportable Target Cells Not Reportable Tear Drop Cells Not Reportable Ovalocytes Not Reportable Helmet Cells Not Reportable Ruelas-Girard Bodies Not Reportable [place] Rings Not Reportable [place] Cells Not Reportable Bite Cells Not Reportable Crenated Cell Not Reportable Elliptocytes Not Reportable Acanthocytes (Spur) Not Reportable Rouleaux Not Reportable Hemoglobin C Crystals Not Reportable Schistocytes Not Reportable Malaria parasites Not Reportable Lorenzo Bodies Not Reportable Hem Pathologist Commnt No Sodium 139 Potassium 4.1 Chloride 103.6 Carbon Dioxide 20 L Anion Gap 20 BUN 6 L Creatinine 0.8 Estimated GFR > 60 BUN/Creatinine Ratio 8 Glucose 100 Calcium 9.4 Total Bilirubin 0.40 AST 22 ALT 18 Alkaline Phosphatase 71 Total Protein 7.3 Albumin 3.7 L Albumin/Globulin Ratio 1.0 Assessment and Plan Assessment and plan: Patient was assessed and evaluated for Acute Inpatient Rehab Unit. Due to the patients above-mentioned medical complexity, along with decreased functional mobility and self care, this patient continues to require and be appropriate for a comprehensive, multidisciplinary [id number] rehabilitation program. These needs cannot be met in an outpatient or other less intensive setting. The patient would continue to benefit from skilled therapy intervention for at least 3 hours per day, five days a week, with techniques specific to the needs of the patient to improve function, activities of daily living, and reintegration into the community. The patient continues to require: -- OT to improve ROM, self-care, and learn use of adaptive equipment -- PT to improve strength and balance, functional transfers, and ambulation with energy conservation techniques to improve functional mobility -- WORKERS COMPENSATION ADMINISTRATOR to address cognitive deficits and swallowing ability -- 24 hour RN to ensure and prevent skin breakdown, promote progressive independence while ensuring safety, ensure education regarding medications, and incorporation of the rehabilitation at the bedside -- 24 hour Photo Equipment Technician to coordinate this interdisciplinary program, and to manage/prevent complications as a result of the patients medical comorbidities. -Plan of care by day 4 -Weekly team conferences With such a program, there is a reasonable certainty that the goals individualized for this patient can be achieved within the specified length of stay Presumed stroke: MRI did not show evidence however patient still has issues with ataxia and dysarthria present past 24 hours. Secondary stroke prevention started. Prognosis and recovery discussed with patient. Dysarthria: Continue speech therapy for improvement. Seizures: Continue Keppra. Seizure precautions. Hypertension: Continue medications and adjust as needed for normotension. Hold for hypotension Alcohol dependence: Continue CIWA protocol, thiamine, folate ADL dysfunction: OT will work on improving ability to perform ADLs (including assistive devices) to increase independence and decrease caregiver burden and improve functional transfers and mobility training. Difficulty walking: PT will work on gait training and proper use of assistive devices and advance as appropriate to use of stairs and outside ambulation on uneven surfaces. Unsteadiness on feet: PT will work on improving static and dynamic sitting and standing balance as well as proper use of assistive devices to decrease risk of falls. Abnormality of gait: PT will work to improve safety and efficiency of gait through neuromotor training and gait training along with instruction on proper use of assistive devices. Debility: PT & OT will work on improving overall functional status to improve participation with ADLs, mobility and social involvement. Fatigue: PT & OT will work on improving endurance through aerobic exercises and therapeutic activity while monitoring patients tolerance for activity and vital signs as needed. DVT ppx:lovenox Pain: Continue physical modalities in therapy and pain medications as needed to achieve functional pain control. Sleep: Monitor and address as needed. Bowel: Monitor and address as needed. Appetite: Monitor and address as needed. Discharge planning: Pending therapy progress and care plan meeting. Will continue discussion with therapy team, SW, patient and family. Restrictions/ Precautions: Falls WB status: FWB Functional Hx: ADLs: Independent with RW Cognition: Independent Mobility: RW Barriers to Discharge: Decreased mobility and ability to perform self care, balance deficits, ataxia, dysarthria Estimated Length of Stay: 14-21 days Discharge Destination: Home alone POST ADMISSION PHYSICIAN EVALUATION I have examined the patient and find that functional status, medical condition and appropriateness for IRF admission are essentially unchanged from those described in the preadmission screening. Will monitor for worsening neurologic changes, shoulder hand syndrome, DVT/PE, bowel and bladder complications and complications due to hypertension, seizure, EtOH withdrawal and electrolyte abnormalities. Will attempt to avoid occurrence of these issues or treat them if they present themselves.
[2019-10-07] MEDS ORDERED: LORazepam 2 MG/ML VIAL IV PRN ×3 (13:46)
[2019-10-07] MEDS ORDERED: LORazepam 2 MG TAB PO PRN ×2 (13:46)
[2019-10-08] MEDS: ASPIRIN EC 81 MG TAB PO SCH (08:39)
[2019-10-08] MEDS: ENOXAPARIN 40 MG/0.4 ML INJ SUB-Q SCH (08:39)
[2019-10-08] MEDS: levETIRAcetam 500 MG TAB PO SCH ×2 (08:40→21:56)
[2019-10-08] MEDS: FOLIC ACID 1 MG TAB PO SCH (08:40)
[2019-10-08] MEDS: POTASSIUM CHLORIDE ER 20 MEQ TAB PO SCH ×2 (08:40→21:57)
[2019-10-08] MEDS: MULTIVITAMINS ,THERAPEUTIC TAB PO SCH (08:41)
[2019-10-08] MEDS: THIAMINE 100 MG TAB PO SCH (08:41)
[2019-10-08] MEDS: amLODIPine 10 MG TAB PO SCH (08:41)
--- NOTE | 2019-10-08 14:00 | Progress Note ---
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 Patient was placed on CIWA protocol. Brain MRI showed advanced atrophy with microvascular ischemic changes but no acute abnormality identified as well. There is also a question of seizures, patient is on Keppra however neuro note was uncertain of this diagnosis. Neurology considered EEG but that is not available in the medical record as of yet. Patient continued having issues with slurred speech and did have generalized weakness. He was evaluated by therapy and determined to be an appropriate candidate for rehabilitation. He lives in an extended stay hotel which presented some hesitation we were assured by shipping team leader that he would have family support and would have living arrangements taking care of at discharge. Patient was in the hospital for 3 days and only required 1 dose of Ativan. Will monitor for any further signs of withdrawal. Alcohol level at admission was negligible. Continue CIWA. At this point we will consider the patient to have clinical signs of a stroke after examination of him. Dysarthria still present and he does have decreased balance as opposed to previously. We'll start the patient on aspirin 81 mg and continue other secondary stroke prevention protocols. Patient is participating in therapy and making reasonable progress. Taking rest breaks as needed. +BM. Denies pain, palpitations, dyspnea, cough, N/V, weakness, or joint pain. CVA: no signs of worsening neurologic function. Dysarthria: somewhat improved. He is understandable Seizure: No breakthrough seizure during this stay Hypertension: stable on current meds, no hypotension Unsteadiness on feet: remains a high fall risk. Continue to work to improve Decreased awareness of deficits: Continue to reinforce. Alcohol dependence: No doses of ativan given, no signs of withdrawal Discussed in team conference. Making progress. Will need to continue therapy to see how much improvement we can obtain. Major issues continue to be balance and coordination. Patient has been getting up alone and remains a high fall risk with decrease awareness of deficits. All records, vitals, labs and medications were reviewed. No other issues per patient, nursing or therapy. Objective - Exam Narrative Exam: MUSCULOSKELETAL SPECIALTY EXAM CONSTITUTIONAL: Well developed, well nourished, appropriately groomed. RIGHT hand dominant. RESPIRATORY: Clear to auscultation bilaterally, no increased work of breathing CARDIOVASCULAR: Regular Rate/ Rhythm, no swelling, edema or tenderness in BUE or BLE. All extremities warm. GI: + bowel sounds, soft, NTTP, nondistended. INTEGUMENTARY: Normal, no lesion, rash, masses or bruising noted in extremities. MUSCULOSKELETAL: BUE and BLE normal without defect, crepitus, subluxation, effusion, arthritic changes or TTP. R 5 /5 L 5 /5 ROM decreased on RUE Tone normal NEURO: CN II - CN XII grossly intact Sensation intact in all extremities Coordination impaired. No tremor noted in 4 extremities. Naming and repetition intact. Follows 2 step commands. Aphasia not appreciated Dysarthria present Dysphagia not appreciated Neglect not appreciated POSTURE and GAIT: Sitting posture good. Balance appears reasonable. Gait unsteady. PSYCH: Alert, oriented x3, affect appears euthymic. Insight appears intact. - Constitutional Vitals: Vital Signs - 12hr 10/08/19 07:27 Temperature 36.6 C Pulse Rate 92 H Respiratory 18 Rate Blood Pressure 114/87 O2 Sat by Pulse 97 Oximetry - Allied health notes Allied health notes reviewed: nursing, PT, ST, OT FIMS assessment as documented by PT/OT/ST: Social interaction/Memory/Problem solving Social Interaction FIM Score 3. Moderate Assistance (Interacts appropriately 50-74%.) Memory FIM Score 3. Moderate Assistance (Recognizes and remembers 50-74%.) Problem Solving FIM Score 3. Moderate Assistance (Solves routine problems 50-74%.) Locomotion- walk/wheelchair Ambulation Distance 10 - Labs CBC & Chem 7: 10/07/19 07:35 10/07/19 07:35 Labs: Laboratory Results - last 72 hr 10/07/19 10/07/19 07:35 07:35 WBC 4.5 RBC 3.53 L Hgb 12.2 Hct 36.3 MCV 103 H MCH 34 H MCHC 34 RDW 13.9 Plt Count 199 [place] % (Auto) Child Development Specialist Add Manual Diff Complete Total Counted 100 Seg Neuts % (Manual) 48.0 Band Neutrophils % 0 Lymphocytes % (Manual) 34.0 Reactive Lymphs % (Man) 0 Monocytes % (Manual) 15.0 H Eosinophils % (Manual) 2.0 Basophils % (Manual) 1.0 Metamyelocytes % 0 Myelocytes % 0 Promyelocytes % 0 Blast Cells % 0 Nucleated RBC % Not Reportable Seg Neutrophils # Man 2.2 Band Neutrophils # 0.0 Lymphocytes # (Manual) 1.5 Abs React Lymphs (Man) 0.0 Monocytes # (Manual) 0.7 Eosinophils # (Manual) 0.1 Basophils # (Manual) 0.0 Metamyelocytes # 0.0 Myelocytes # 0.0 Promyelocytes # 0.0 Blast Cells # 0.0 WBC Morphology Not Reportable Hypersegmented Neuts Not Reportable Hyposegmented Neuts Not Reportable Hypogranular Neuts Not Reportable Smudge Cells Not Reportable Toxic Granulation Not Reportable Toxic Vacuolation Not Reportable Dohle Bodies Not Reportable Pelger-Huet Anomaly Not Reportable Michelle Rods Not Reportable Platelet Estimate Consistent w auto Clumped Platelets Not Reportable Plt Clumps, EDTA Not Reportable Large Platelets Not Reportable Giant Platelets Not Reportable Platelet Satelliting Not Reportable Plt Morphology Comment Not Reportable RBC Morphology Normal Dimorphic RBCs Not Reportable Polychromasia Not Reportable Hypochromasia Not Reportable Poikilocytosis Not Reportable Anisocytosis Not Reportable Microcytosis Not Reportable Macrocytosis Not Reportable Spherocytes Not Reportable Pappenheimer Bodies Not Reportable Sickle Cells Not Reportable Target Cells Not Reportable Tear Drop Cells Not Reportable Ovalocytes Not Reportable Helmet Cells Not Reportable [place]uel[place] Bodies Not Reportable [place] Rings Not Reportable [place] Cells Not Reportable Bite Cells Not Reportable Crenated Cell Not Reportable Elliptocytes Not Reportable Acanthocytes (Spur) Not Reportable Rouleaux Not Reportable Hemoglobin C Crystals Not Reportable Schistocytes Not Reportable Malaria parasites Not Reportable Lorenzo Bodies Not Reportable Hem Pathologist Commnt No Sodium 139 Potassium 4.1 Chloride 103.6 Carbon Dioxide 20 L Anion Gap 20 BUN 6 L Creatinine 0.8 Estimated GFR > 60 BUN/Creatinine Ratio 8 Glucose 100 Calcium 9.4 Total Bilirubin 0.40 AST 22 ALT 18 Alkaline Phosphatase 71 Total Protein 7.3 Albumin 3.7 L Albumin/Globulin Ratio 1.0 Assessment and Plan Presumed stroke: MRI did not show evidence however patient still has issues with ataxia and dysarthria present past 24 hours. Secondary stroke prevention started. Prognosis and recovery discussed with patient. Dysarthria: Continue speech therapy for improvement. Seizures: Continue Keppra. Seizure precautions. Hypertension: Continue medications and adjust as needed for normotension. Hold for hypotension Alcohol dependence: Continue CIWA protocol, thiamine, folate ADL dysfunction: OT will work on improving ability to perform ADLs (including assistive devices) to increase independence and decrease caregiver burden and improve functional transfers and mobility training. Difficulty walking: PT will work on gait training and proper use of assistive devices and advance as appropriate to use of stairs and outside ambulation on uneven surfaces. Unsteadiness on feet: PT will work on improving static and dynamic sitting and standing balance as well as proper use of assistive devices to decrease risk of falls. Abnormality of gait: PT will work to improve safety and efficiency of gait through neuromotor training and gait training along with instruction on proper use of assistive devices. Debility: PT & OT will work on improving overall functional status to improve participation with ADLs, mobility and social involvement. Fatigue: PT & OT will work on improving endurance through aerobic exercises and therapeutic activity while monitoring patients tolerance for activity and vital signs as needed. DVT ppx:lovenox Pain: Continue physical modalities in therapy and pain medications as needed to achieve functional pain control. Sleep: Monitor and address as needed. Bowel: Monitor and address as needed. Appetite: Monitor and address as needed. Discharge planning: Pending therapy progress and care plan meeting. Will continue discussion with therapy team, SW, patient and family. Restrictions/ Precautions: Falls WB status: FWB Functional Hx: ADLs: Independent with RW Cognition: Independent Mobility: RW Barriers to Discharge: Decreased mobility and ability to perform self care, balance deficits, ataxia, dysarthria Estimated Length of Stay: 14-21 days Discharge Destination: Home alone
[2019-10-09] MEDS: THIAMINE 100 MG TAB PO SCH (08:19)
[2019-10-09] MEDS: amLODIPine 10 MG TAB PO SCH (08:19)
[2019-10-09] MEDS: levETIRAcetam 500 MG TAB PO SCH ×2 (08:20→21:15)
[2019-10-09] MEDS: ASPIRIN EC 81 MG TAB PO SCH (08:20)
[2019-10-09] MEDS: FOLIC ACID 1 MG TAB PO SCH (08:20)
[2019-10-09] MEDS: POTASSIUM CHLORIDE ER 20 MEQ TAB PO SCH ×2 (08:21→21:15)
[2019-10-09] MEDS: MULTIVITAMINS ,THERAPEUTIC TAB PO SCH (08:21)
[2019-10-09] MEDS: ENOXAPARIN 40 MG/0.4 ML INJ SUB-Q SCH (08:22)
--- NOTE | 2019-10-09 09:07 | Progress Note ---
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 Patient was placed on CIWA protocol. Brain MRI showed advanced atrophy with microvascular ischemic changes but no acute abnormality identified as well. There is also a question of seizures, patient is on Keppra however neuro note was uncertain of this diagnosis. Neurology considered EEG but that is not available in the medical record as of yet. Patient continued having issues with slurred speech and did have generalized weakness. He was evaluated by therapy and determined to be an appropriate candidate for rehabilitation. He lives in an extended stay hotel which presented some hesitation we were assured by cryptography teacher that he would have family support and would have living arrangements taking care of at discharge. Patient was in the hospital for 3 days and only required 1 dose of Ativan. Will monitor for any further signs of withdrawal. Alcohol level at admission was negligible. Continue CIWA. At this point we will consider the patient to have clinical signs of a stroke after examination of him. Dysarthria still present and he does have decreased balance as opposed to previously. We'll start the patient on aspirin 81 mg and continue other secondary stroke prevention protocols. Patient is participating in therapy and making reasonable progress. Taking rest breaks as needed. +BM. Denies pain, palpitations, dyspnea, cough, N/V, weakness, or joint pain. CVA: no signs of worsening neurologic function. Dysarthria: somewhat improved. He is understandable. Does not want to perform exercises to improve speech Seizure: No breakthrough seizure during this stay Hypertension: stable on current meds, no hypotension Unsteadiness on feet: remains a high fall risk. Continue to work to improve Decreased awareness of deficits: Continue to reinforce. Alcohol dependence: No doses of ativan given, no signs of withdrawal All records, vitals, labs and medications were reviewed. No other issues per patient, nursing or therapy. Objective - Exam Narrative Exam: MUSCULOSKELETAL SPECIALTY EXAM CONSTITUTIONAL: Well developed, well nourished, appropriately groomed. RIGHT hand dominant. RESPIRATORY: no increased work of breathing CARDIOVASCULAR: no swelling, edema or tenderness in BUE or BLE. All extremities warm. GI: soft, NTTP, nondistended. INTEGUMENTARY: Normal, no lesion, rash, masses or bruising noted in extremities. MUSCULOSKELETAL: BUE and BLE normal without defect, crepitus, subluxation, effusion, arthritic changes or TTP. R 5 /5 L 5 /5 ROM decreased on RUE Tone normal NEURO: CN II - CN XII grossly intact Sensation intact in all extremities Coordination impaired. No tremor noted in 4 extremities. Naming and repetition intact. Follows 2 step commands. Aphasia not appreciated Dysarthria present Dysphagia not appreciated Neglect not appreciated POSTURE and GAIT: Sitting posture good. Balance appears reasonable. Gait unsteady. PSYCH: Alert, oriented x3, affect appears euthymic. Insight appears intact. - Constitutional Vitals: Vital Signs - 12hr 10/09/19 10/09/19 07:09 08:19 Temperature 36.6 C Pulse Rate 78 78 Respiratory 18 Rate Blood Pressure 140/93 140/93 O2 Sat by Pulse 100 Oximetry - Allied health notes Allied health notes reviewed: nursing, PT, ST, OT FIMS assessment as documented by PT/OT/ST: Social interaction/Memory/Problem solving Social Interaction FIM Score 3. Moderate Assistance (Interacts appropriately 50-74%.) Memory FIM Score 3. Moderate Assistance (Recognizes and remembers 50-74%.) Problem Solving FIM Score 3. Moderate Assistance (Solves routine problems 50-74%.) Locomotion- walk/wheelchair Ambulation Distance 10 - Labs CBC & Chem 7: 10/07/19 07:35 10/07/19 07:35 Labs: Laboratory Results - last 72 hr 10/07/19 10/07/19 07:35 07:35 WBC 4.5 RBC 3.53 L Hgb 12.2 Hct 36.3 MCV 103 H MCH 34 H MCHC 34 RDW 13.9 Plt Count 199 [place] % (Auto) Internal Combustion Engineer Add Manual Diff Complete Total Counted 100 Seg Neuts % (Manual) 48.0 Band Neutrophils % 0 Lymphocytes % (Manual) 34.0 Reactive Lymphs % (Man) 0 Monocytes % (Manual) 15.0 H Eosinophils % (Manual) 2.0 Basophils % (Manual) 1.0 Metamyelocytes % 0 Myelocytes % 0 Promyelocytes % 0 Blast Cells % 0 Nucleated RBC % Not Reportable Seg Neutrophils # Man 2.2 Band Neutrophils # 0.0 Lymphocytes # (Manual) 1.5 Abs React Lymphs (Man) 0.0 Monocytes # (Manual) 0.7 Eosinophils # (Manual) 0.1 Basophils # (Manual) 0.0 Metamyelocytes # 0.0 Myelocytes # 0.0 Promyelocytes # 0.0 Blast Cells # 0.0 WBC Morphology Not Reportable Hypersegmented Neuts Not Reportable Hyposegmented Neuts Not Reportable Hypogranular Neuts Not Reportable Smudge Cells Not Reportable Toxic Granulation Not Reportable Toxic Vacuolation Not Reportable Dohle Bodies Not Reportable Pelger-Huet Anomaly Not Reportable Michelle Rods Not Reportable Platelet Estimate Consistent w auto Clumped Platelets Not Reportable Plt Clumps, EDTA Not Reportable Large Platelets Not Reportable Giant Platelets Not Reportable Platelet Satelliting Not Reportable Plt Morphology Comment Not Reportable RBC Morphology Normal Dimorphic RBCs Not Reportable Polychromasia Not Reportable Hypochromasia Not Reportable Poikilocytosis Not Reportable Anisocytosis Not Reportable Microcytosis Not Reportable Macrocytosis Not Reportable Spherocytes Not Reportable Pappenheimer Bodies Not Reportable Sickle Cells Not Reportable Target Cells Not Reportable Tear Drop Cells Not Reportable Ovalocytes Not Reportable Helmet Cells Not Reportable [place]uel[place] Bodies Not Reportable [place] Rings Not Reportable [place] Cells Not Reportable Bite Cells Not Reportable Crenated Cell Not Reportable Elliptocytes Not Reportable Acanthocytes (Spur) Not Reportable Rouleaux Not Reportable Hemoglobin C Crystals Not Reportable Schistocytes Not Reportable Malaria parasites Not Reportable Lorenzo Bodies Not Reportable Hem Pathologist Commnt No Sodium 139 Potassium 4.1 Chloride 103.6 Carbon Dioxide 20 L Anion Gap 20 BUN 6 L Creatinine 0.8 Estimated GFR > 60 BUN/Creatinine Ratio 8 Glucose 100 Calcium 9.4 Total Bilirubin 0.40 AST 22 ALT 18 Alkaline Phosphatase 71 Total Protein 7.3 Albumin 3.7 L Albumin/Globulin Ratio 1.0 Assessment and Plan Presumed stroke: MRI did not show evidence however patient still has issues with ataxia and dysarthria present past 24 hours. Secondary stroke prevention started. Prognosis and recovery discussed with patient. Dysarthria: Continue speech therapy for improvement. Seizures: Continue Keppra. Seizure precautions. Hypertension: Continue medications and adjust as needed for normotension. Hold for hypotension Alcohol dependence: Continue CIWA protocol, thiamine, folate ADL dysfunction: OT will work on improving ability to perform ADLs (including assistive devices) to increase independence and decrease caregiver burden and improve functional transfers and mobility training. Difficulty walking: PT will work on gait training and proper use of assistive devices and advance as appropriate to use of stairs and outside ambulation on uneven surfaces. Unsteadiness on feet: PT will work on improving static and dynamic sitting and standing balance as well as proper use of assistive devices to decrease risk of falls. Abnormality of gait: PT will work to improve safety and efficiency of gait through neuromotor training and gait training along with instruction on proper use of assistive devices. Debility: PT & OT will work on improving overall functional status to improve participation with ADLs, mobility and social involvement. Fatigue: PT & OT will work on improving endurance through aerobic exercises and therapeutic activity while monitoring patients tolerance for activity and vital signs as needed. DVT ppx:lovenox Pain: Continue physical modalities in therapy and pain medications as needed to achieve functional pain control. Sleep: Monitor and address as needed. Bowel: Monitor and address as needed. Appetite: Monitor and address as needed. Discharge planning: Pending therapy progress and care plan meeting. Will continue discussion with therapy team, SW, patient and family. Restrictions/ Precautions: Falls WB status: FWB Functional Hx: ADLs: Independent with RW Cognition: Independent Mobility: RW Barriers to Discharge: Decreased mobility and ability to perform self care, balance deficits, ataxia, dysarthria Estimated Length of Stay: 14-21 days Discharge Destination: Home alone
--- NOTE | 2019-10-09 20:00 | IRU Plan of Care ---
Interdisciplinary Plan of Care - IP IRU INTERDISCIPLINARY PLAN: [facility] Inpatient Rehab Unit Plan of Care IRU Interdisciplinary Care Plan Start: 10/06/19 19:36 Freq: Admission then PRN Status: Active Protocol: Document 10/09/19 15:14 TH (Rec: 10/09/19 15:23 TH [id number]) Interdisciplinary Problem List Interdisciplinary Problem List Interdisciplinary Problem List Impaired Bathing/Grooming, Query Text:Answers will Trigger Problems Impaired Dressing,Impaired and Outcomes on Worklist. Mobility,Impaired Transfers, Impaired Expression,Knowledge Deficits,Discharge Concerns, Impaired Home Management, Impaired Safety,Diabetes Education,Impaired Cardiovascular System IRU Interdisciplinary Care Plan Therapy Services Therapy Services Will Include: Physical Therapy,Occupational Query Text:Patient will be seen for a Therapy,Speech Therapy minimum of 3 hours of daily therapy 5 out of 7 days a week. Therapy intensity may be adjusted within a 7 consecutive day period to effectively serve the individual needs of the patient. Treatment Frequency/Intensity/Duration Treatment Frequency 5days/week Treatment Intensity 3 hours per day Treatment Duration 14-21 days Problem Area: Eating/Swallowing Eating/Swallowing Outcomes Eating/Swallowing Interventions Problem Area: Bathing/Grooming Bathing/Grooming Outcomes Improve Hardy w/ Grooming,Improve Hardy w/ Bathing Bathing/Grooming Interventions ADL Training,Use of Assistive Devices,Therapeutic Exercise, Therapeutic Activity, Neuromuscular Re-Education, Balance Work,Activity Tolerance Work,Patient/ Caregiver Education Problem Area: Dressing Dressing Outcomes Improve Hardy w/ UB Dressing,Improve Hardy w/ LB Dressing Dressing Interventions ADL Training,Use of Assistive Devices,Neuromuscular Re- Education,Therapeutic Exercise ,Balance Work,Modalities, Patient/Caregiver Education Problem Area: Mobility Mobility Outcomes Improve Hardy w/ Bed Mobility,Improve Hardy w/ Ambulation Mobility Interventions Therapeutic Exercise, Neuromuscular Re-Ed.,Visual/ Perceptual Training,Activity Tolerance Work,Modalities,Use of Assistive Devices,Patient/ Caregiver Education,Bed Mobility Work,Household Mobility Work,W/C Mobility Work Problem Area: Transfers Transfers Outcomes Improve Hardy w/ Bed Transfers,Improve Hardy w/ Toilet Transfers,Improve Hardy w/ Tub/Shower Transfers Transfers Interventions Transfer Training,Therapeutic Exercise,Neuromuscular Re- Education,Visual/Perceptual Training,Activity Tolerance Work,Modalities,Use of Assistive Devices,Patient/ Caregiver Education Problem Area: Bowel/Bladder Managment Bowel/Bladder Outcomes Bowel/Bladder Interventions Problem Area: Toileting Toileting Outcomes Improve Hardy w/ Toileting Toileting Interventions ADL Training,Balance Work,Use of Assistive Devices,Patient/ Caregiver Education Problem Area: Nutrition Nutrition Outcomes Nutrition Interventions Problem Area: Comprehension Comprehension Outcomes Comprehension Interventions Problem Area: Expression Expression Outcomes Improve Intelligibility Expression Interventions Patient/Caregiver Education Problem Area: Problem Solving Problem Solving Outcomes Problem Solving Interventions Problem Area: Memory Memory Outcomes Memory Interventions Problem Area: Pain Management Pain Management Outcomes Pain Management Interventions Problem Area: Knowledge Deficits Knowledge Deficits Outcomes Knowledge Deficits Interventions Problem Area: Skin/Tissue Integrity Skin/Tissue Integrity Outcomes Skin/Tissue Integrity Interventions Problem Area: Social Interaction Social Interaction Outcomes Social Interaction Interventions Problem Area: Adjustment to Disability Adjustment to Disability Outcomes Adjustment to Disability Interventions Problem Area: Discharge Concerns Discharge Concerns Outcomes Discharge w/ Necessary Equipment,Have Home Health/ Outpatient Services Discharge Concerns Interventions Discharge Planning,Equipment Assessment, Acquisition and Placement,Family/Caregiver Conference,Patient/Family/ Caregiver Counseling,Family/ Caregiver Training Problem Area: Community Reintegration Community Reintegration Outcomes Community Reintegration Interventions Problem Area: Home Management Home Management Outcomes Improve Hardy w/ Home Management Home Management Interventions Meal Preparation,Clothing Care ,Activity Tolerance Work, Leisure Skills Development, House Cleaning,Telephone Use, Patient/Caregiver Education Problem Area: Safety Safety Outcomes Provide Safe Environment, Perform Selfcare Safely, Demonstrate Good Safety w/ Transfers/Mobility Safety Interventions Identify Fall Risk,[place] Pt. to Environment,Reduce Environmental Hazards,Neuro Check Assessment,Implement Mechanical Devices, i.e. Chair Alarm (Post Fall Update),Re- Educate Patient/Caregiver for Safety (Post Fall Update) Problem Area: Medication Education Medication Education Outcomes Medication Education Interventions Problem Area: Diabetes Education Diabetes Education Outcomes Diabetes Education Interventions Problem Area: Oxygenation Oxygenation Outcomes Oxygenation Interventions Problem Area: Cardiovascular Cardiovascular Outcomes Maintain or Improve Cardiovascular Status Cardiovascular Interventions Assess Vital Signs at least Every 4 hours,Cardiac Monitoring, EKG and ABG as Ordered. Physician Only Medical Prognosis and Rehabilitation Potential (Completed by Physician) Fair rehab potential and overall prognosis. Alcohol abuse with some overlapping chronic issues. Will discharge alone currently. Will likely need supervision in the near future, sooner if he continues to abuse alcohol This plan of care has been developed based on the findings from the pre- admission assessment, post admission physician evaluation, information gathered from the assessments from all therapy disciplines and other pertinent clinicians. The plan of care has been reviewed and discussed in collaboration with the interdisciplinary team. The plan of care will be reviewed and updated at least weekly.
[2019-10-09] MEDS: ACETAMINOPHEN 325 MG TAB PO PRN (21:16)
--- NOTE | 2019-10-10 09:41 | Progress Note ---
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 Patient was placed on CIWA protocol. Brain MRI showed advanced atrophy with microvascular ischemic changes but no acute abnormality identified as well. There is also a question of seizures, patient is on Keppra however neuro note was uncertain of this diagnosis. Neurology considered EEG but that is not available in the medical record as of yet. Patient continued having issues with slurred speech and did have generalized weakness. He was evaluated by therapy and determined to be an appropriate candidate for rehabilitation. He lives in an extended stay hotel which presented some hesitation we were assured by hyster machine operator that he would have family support and would have living arrangements taking care of at discharge. Patient was in the hospital for 3 days and only required 1 dose of Ativan. Will monitor for any further signs of withdrawal. Alcohol level at admission was negligible. Continue CIWA. At this point we will consider the patient to have clinical signs of a stroke after examination of him. Dysarthria still present and he does have decreased balance as opposed to previously. We'll start the patient on aspirin 81 mg and continue other secondary stroke prevention protocols. Patient is participating in therapy and making reasonable progress. Taking rest breaks as needed. +BM. Denies pain, palpitations, dyspnea, cough, N/V, weakness, or joint pain. CVA: no signs of worsening neurologic function. Dysarthria: somewhat improved. He is understandable. Does not want to perform exercises to improve speech Seizure: No breakthrough seizure during this stay Hypertension: stable on current meds, no hypotension Unsteadiness on feet: remains a high fall risk. Continue to work to improve Decreased awareness of deficits: Continue to reinforce. Alcohol dependence: No doses of ativan given, no signs of withdrawal All records, vitals, labs and medications were reviewed. No other issues per patient, nursing or therapy. Objective - Exam Narrative Exam: MUSCULOSKELETAL SPECIALTY EXAM CONSTITUTIONAL: Well developed, well nourished, appropriately groomed. RIGHT hand dominant. RESPIRATORY: CTAB. no increased work of breathing CARDIOVASCULAR: RRR. no swelling, edema or tenderness in BUE or BLE. All extremities warm. GI: soft, NTTP, nondistended. INTEGUMENTARY: Normal, no lesion, rash, masses or bruising noted in extremities. MUSCULOSKELETAL: BUE and BLE normal without defect, crepitus, subluxation, effusion, arthritic changes or TTP. R 5 /5 L 5 /5 ROM decreased on RUE Tone normal NEURO: CN II - CN XII grossly intact Sensation intact in all extremities Coordination impaired. No tremor noted in 4 extremities. Naming and repetition intact. Follows 2 step commands. Aphasia not appreciated Dysarthria present Dysphagia not appreciated Neglect not appreciated POSTURE and GAIT: Sitting posture good. Balance appears reasonable. Gait unsteady. PSYCH: Alert, oriented x3, affect appears euthymic. Insight appears intact. - Constitutional Vitals: Vital Signs - 12hr 10/09/19 10/09/19 10/10/19 22:00 22:16 08:00 Temperature 37.1 C Pulse Rate 96 H Respiratory 18 18 Rate Respiratory 20 Rate [Bilateral Distal Back] Respiratory 18 Rate [Head] Blood Pressure 116/84 O2 Sat by Pulse 98 Oximetry - Allied health notes Allied health notes reviewed: nursing, PT, ST, OT FIMS assessment as documented by PT/OT/ST: Social interaction/Memory/Problem solving Social Interaction FIM Score 5. Supervision (Needs supv. <10%. Needs encouragement to participate.) Memory FIM Score 5. Supervision (Needs cueing <10%, stressful/ unfamiliar situations.) Problem Solving FIM Score 4. Minimal Assistance (Solves routine problems 75-90%.) Transfers Mode of Locomotion: Wheelchair Bed/Chair/Wheelchair Transfers 4. Minimal Assistance (Patient = 75% or more. FIM Score Needs touching.) Locomotion- walk/wheelchair Ambulation Distance 10 - Labs CBC & Chem 7: 10/07/19 07:35 10/07/19 07:35 Assessment and Plan Presumed stroke: MRI did not show evidence however patient still has issues with ataxia and dysarthria present past 24 hours. Secondary stroke prevention started. Prognosis and recovery discussed with patient. Dysarthria: Continue speech therapy for improvement. Seizures: Continue Keppra. Seizure precautions. Hypertension: Continue medications and adjust as needed for normotension. Hold for hypotension Alcohol dependence: Continue CIWA protocol, thiamine, folate ADL dysfunction: OT will work on improving ability to perform ADLs (including assistive devices) to increase independence and decrease caregiver burden and improve functional transfers and mobility training. Difficulty walking: PT will work on gait training and proper use of assistive devices and advance as appropriate to use of stairs and outside ambulation on uneven surfaces. Unsteadiness on feet: PT will work on improving static and dynamic sitting and standing balance as well as proper use of assistive devices to decrease risk of falls. Abnormality of gait: PT will work to improve safety and efficiency of gait t hrough neuromotor training and gait training along with instruction on proper use of assistive devices. Debility: PT & OT will work on improving overall functional status to improve participation with ADLs, mobility and social involvement. Fatigue: PT & OT will work on improving endurance through aerobic exercises and therapeutic activity while monitoring patients tolerance for activity and vital signs as needed. DVT ppx:lovenox Pain: Continue physical modalities in therapy and pain medications as needed to achieve functional pain control. Sleep: Monitor and address as needed. Bowel: Monitor and address as needed. Appetite: Monitor and address as needed. Discharge planning: Pending therapy progress and care plan meeting. Will continue discussion with therapy team, SW, patient and family. Restrictions/ Precautions: Falls WB status: FWB Functional Hx: ADLs: Independent with RW Cognition: Independent Mobility: RW Barriers to Discharge: Decreased mobility and ability to perform self care, balance deficits, ataxia, dysarthria Estimated Length of Stay: 14-21 days Discharge Destination: Home alone
[2019-10-10] MEDS: amLODIPine 10 MG TAB PO SCH (11:00)
[2019-10-10] MEDS: MULTIVITAMINS ,THERAPEUTIC TAB PO SCH (11:01)
[2019-10-10] MEDS: ASPIRIN EC 81 MG TAB PO SCH (11:01)
[2019-10-10] MEDS: THIAMINE 100 MG TAB PO SCH (11:01)
[2019-10-10] MEDS: ENOXAPARIN 40 MG/0.4 ML INJ SUB-Q SCH (11:01)
[2019-10-10] MEDS: POTASSIUM CHLORIDE ER 20 MEQ TAB PO SCH ×2 (11:02→21:58)
[2019-10-10] MEDS: FOLIC ACID 1 MG TAB PO SCH (11:02)
[2019-10-10] MEDS: levETIRAcetam 500 MG TAB PO SCH ×2 (11:02→21:59)
[2019-10-11] MEDS: POTASSIUM CHLORIDE ER 20 MEQ TAB PO SCH ×2 (09:30→21:10)
[2019-10-11] MEDS: ENOXAPARIN 40 MG/0.4 ML INJ SUB-Q SCH (09:30)
[2019-10-11] MEDS: FOLIC ACID 1 MG TAB PO SCH (09:30)
[2019-10-11] MEDS: ASPIRIN EC 81 MG TAB PO SCH (09:30)
[2019-10-11] MEDS: MULTIVITAMINS ,THERAPEUTIC TAB PO SCH (09:30)
[2019-10-11] MEDS: levETIRAcetam 500 MG TAB PO SCH ×2 (09:31→21:10)
[2019-10-11] MEDS: THIAMINE 100 MG TAB PO SCH (09:31)
[2019-10-11] MEDS: amLODIPine 10 MG TAB PO SCH (09:31)
[2019-10-12 06:25] LABS: Hematocrit 36.3 % (35.5-45.6); Hemoglobin 12.6 gm/dl (11.8-15.2); Mean Corpuscular HGB Conc 35 % (32-34); Mean Corpuscular Volume 102 fl (84-94); Platelet Count 260 K/mm3 (140-440); Red Blood Count 3.56 M/mm3 (3.65-5.03)
[2019-10-12 06:53] LABS: BUN/Creatinine Ratio 10; Blood Urea Nitrogen 9 mg/dL (9-20); Calcium 9.6 mg/dL (8.4-10.2); Hemolysis Index 0
[2019-10-12] MEDS: FOLIC ACID 1 MG TAB PO SCH (09:32)
[2019-10-12] MEDS: ASPIRIN EC 81 MG TAB PO SCH (09:32)
[2019-10-12] MEDS: levETIRAcetam 500 MG TAB PO SCH ×2 (09:32→23:01)
[2019-10-12] MEDS: POTASSIUM CHLORIDE ER 20 MEQ TAB PO SCH ×2 (09:32→23:01)
[2019-10-12] MEDS: THIAMINE 100 MG TAB PO SCH (09:33)
[2019-10-12] MEDS: MULTIVITAMINS ,THERAPEUTIC TAB PO SCH (09:33)
[2019-10-12] MEDS: amLODIPine 10 MG TAB PO SCH (09:33)
[2019-10-12] MEDS: ENOXAPARIN 40 MG/0.4 ML INJ SUB-Q SCH (09:36)
--- NOTE | 2019-10-12 10:32 | Progress Note ---
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 Patient was placed on CIWA protocol. Brain MRI showed advanced atrophy with microvascular ischemic changes but no acute abnormality identified as well. There is also a question of seizures, patient is on Keppra however neuro note was uncertain of this diagnosis. Neurology considered EEG but that is not available in the medical record as of yet. Patient continued having issues with slurred speech and did have generalized weakness. He was evaluated by therapy and determined to be an appropriate candidate for rehabilitation. He lives in an extended stay hotel which presented some hesitation we were assured by diesel service journeyman that he would have family support and would have living arrangements taking care of at discharge. Patient was in the hospital for 3 days and only required 1 dose of Ativan. Will monitor for any further signs of withdrawal. Alcohol level at admission was negligible. Continue CIWA. At this point we will consider the patient to have clinical signs of a stroke after examination of him. Dysarthria still present and he does have decreased balance as opposed to previously. We'll start the patient on aspirin 81 mg and continue other secondary stroke prevention protocols. Patient is participating in therapy and making reasonable progress. Taking rest breaks as needed. +BM. Denies pain, palpitations, dyspnea, cough, N/V, weakness, or joint pain. CVA: no signs of worsening neurologic function. Dysarthria: somewhat improved. He is understandable. Does not want to perform exercises to improve speech Seizure: No breakthrough seizure during this stay Hypertension: stable on current meds, no hypotension Unsteadiness on feet: remains a high fall risk. Continue to work to improve Decreased awareness of deficits: Continue to reinforce. Alcohol dependence: No doses of ativan given, no signs of withdrawal All records, vitals, labs and medications were reviewed. No other issues per patient, nursing or therapy. Objective - Exam Narrative Exam: MUSCULOSKELETAL SPECIALTY EXAM CONSTITUTIONAL: Well developed, well nourished, appropriately groomed. RIGHT hand dominant. RESPIRATORY: CTAB. no increased work of breathing CARDIOVASCULAR: RRR. no swelling, edema or tenderness in BUE or BLE. All extremities warm. GI: soft, NTTP, nondistended. INTEGUMENTARY: Normal, no lesion, rash, masses or bruising noted in extremities. MUSCULOSKELETAL: BUE and BLE normal without defect, crepitus, subluxation, effusion, arthritic changes or TTP. R 5 /5 L 5 /5 ROM decreased on RUE Tone normal NEURO: CN II - CN XII grossly intact Sensation intact in all extremities Coordination impaired. No tremor noted in 4 extremities. Naming and repetition intact. Follows 2 step commands. Aphasia not appreciated Dysarthria present Dysphagia not appreciated Neglect not appreciated POSTURE and GAIT: Sitting posture good. Balance appears reasonable most times. Gait unsteady. PSYCH: Alert, oriented x3, affect appears euthymic. Insight appears intact. - Constitutional Vitals: Vital Signs - 12hr 10/12/19 10/12/19 04:16 07:51 Temperature 36.8 C Pulse Rate 90 Respiratory 18 18 Rate Blood Pressure 141/113 O2 Sat by Pulse 99 Oximetry - Allied health notes Allied health notes reviewed: nursing, PT, ST, OT FIMS assessment as documented by PT/OT/ST: Social interaction/Memory/Problem solving Social Interaction FIM Score 7. Complete [place] (Interacts appropriately. Controls temper.) Memory FIM Score 7. Complete [place] (Remembers people and routines.) Problem Solving FIM Score 7. Complete [place] (Solves complex problems. Self corrects.) Transfers Mode of Locomotion: Wheelchair Bed/Chair/Wheelchair Transfers 4. Minimal Assistance (Patient = 75% or more. FIM Score Needs touching.) Locomotion- walk/wheelchair Ambulation Distance 10 - Labs CBC & Chem 7: 10/12/19 06:08 10/12/19 06:08 Labs: Laboratory Results - last 72 hr 10/12/19 10/12/19 06:08 06:08 WBC 5.4 RBC 3.56 L Hgb 12.6 Hct 36.3 MCV 102 H MCH 35 H MCHC 35 H RDW 13.0 L Plt Count 260 Sodium 136 L Potassium 4.4 Chloride 98.1 Carbon Dioxide 24 Anion Gap 18 BUN 9 Creatinine 0.9 Estimated GFR > 60 BUN/Creatinine Ratio 10 Glucose 104 H Calcium 9.6 Assessment and Plan Presumed stroke: MRI did not show evidence however patient still has issues with ataxia and dysarthria present past 24 hours. Secondary stroke prevention kadi linda Prognosis and recovery discussed with patient. Dysarthria: Continue speech therapy for improvement. Seizures: Continue Keppra. Seizure precautions. Hypertension: Continue medications and adjust as needed for normotension. Hold for hypotension Alcohol dependence: Continue CIWA protocol, thiamine, folate ADL dysfunction: OT will work on improving ability to perform ADLs (including assistive devices) to increase independence and decrease caregiver burden and improve functional transfers and mobility training. Difficulty walking: PT will work on gait training and proper use of assistive devices and advance as appropriate to use of stairs and outside ambulation on uneven surfaces. Unsteadiness on feet: PT will work on improving static and dynamic sitting and standing balance as well as proper use of assistive devices to decrease risk of falls. Abnormality of gait: PT will work to improve safety and efficiency of gait through neuromotor training and gait training along with instruction on proper use of assistive devices. Debility: PT & OT will work on improving overall functional status to improve participation with ADLs, mobility and social involvement. Fatigue: PT & OT will work on improving endurance through aerobic exercises and therapeutic activity while monitoring patients tolerance for activity and vital signs as needed. DVT ppx:lovenox Pain: Continue physical modalities in therapy and pain medications as needed to achieve functional pain control. Sleep: Monitor and address as needed. Bowel: Monitor and address as needed. Appetite: Monitor and address as needed. Discharge planning: Pending therapy progress and care plan meeting. Will continue discussion with therapy team, SW, patient and family. Restrictions/ Precautions: Falls WB status: FWB Functional Hx: ADLs: Independent with RW Cognition: Independent Mobility: RW Barriers to Discharge: Decreased mobility and ability to perform self care, balance deficits, ataxia, dysarthria Estimated Length of Stay: 14-21 days Discharge Destination: Home alone
[2019-10-13] MEDS: THIAMINE 100 MG TAB PO SCH (08:32)
[2019-10-13] MEDS: ASPIRIN EC 81 MG TAB PO SCH (08:32)
[2019-10-13] MEDS: levETIRAcetam 500 MG TAB PO SCH ×2 (08:32→21:41)
[2019-10-13] MEDS: POTASSIUM CHLORIDE ER 20 MEQ TAB PO SCH ×2 (08:32→21:42)
[2019-10-13] MEDS: amLODIPine 10 MG TAB PO SCH (08:32)
[2019-10-13] MEDS: FOLIC ACID 1 MG TAB PO SCH (08:32)
[2019-10-13] MEDS: MULTIVITAMINS ,THERAPEUTIC TAB PO SCH (08:32)
[2019-10-13] MEDS: ENOXAPARIN 40 MG/0.4 ML INJ SUB-Q SCH (08:33)
--- NOTE | 2019-10-13 11:58 | Progress Note ---
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 Patient was placed on CIWA protocol. Brain MRI showed advanced atrophy with microvascular ischemic changes but no acute abnormality identified as well. There is also a question of seizures, patient is on Keppra however neuro note was uncertain of this diagnosis. Neurology considered EEG but that is not available in the medical record as of yet. Patient continued having issues with slurred speech and did have generalized weakness. He was evaluated by therapy and determined to be an appropriate candidate for rehabilitation. He lives in an extended stay hotel which presented some hesitation we were assured by dope pourer that he would have family support and would have living arrangements taking care of at discharge. Patient was in the hospital for 3 days and only required 1 dose of Ativan. Will monitor for any further signs of withdrawal. Alcohol level at admission was negligible. Continue CIWA. At this point we will consider the patient to have clinical signs of a stroke after examination of him. Dysarthria still present and he does have decreased balance as opposed to previously. We'll start the patient on aspirin 81 mg and continue other secondary stroke prevention protocols. Patient is participating in therapy and making reasonable progress. Taking rest breaks as needed. +BM. Denies pain, palpitations, dyspnea, cough, N/V, weakness, or joint pain. CVA: no signs of worsening neurologic function. Dysarthria: Stable. He is understandable. Seems to be more open to exercises now Seizure: No breakthrough seizure during this stay Hypertension: stable on current meds, no hypotension Unsteadiness on feet: remains a high fall risk. Continue to work to improve Decreased awareness of deficits: Continue to reinforce. Alcohol dependence: No doses of ativan given, no signs of withdrawal All records, vitals, labs and medications were reviewed. No other issues per pa mj, nursing or therapy. Objective - Exam Narrative Exam: MUSCULOSKELETAL SPECIALTY EXAM CONSTITUTIONAL: Well developed, well nourished, appropriately groomed. RIGHT hand dominant. RESPIRATORY: CTAB. no increased work of breathing CARDIOVASCULAR: RRR. no swelling, edema or tenderness in BUE or BLE. All extremities warm. GI: soft, NTTP, nondistended. INTEGUMENTARY: Normal, no lesion, rash, masses or bruising noted in extremities. MUSCULOSKELETAL: BUE and BLE normal without defect, crepitus, subluxation, effusion, arthritic changes or TTP. R 5 /5 L 5 /5 ROM decreased on RUE Tone normal NEURO: CN II - CN XII grossly intact Sensation intact in all extremities Coordination impaired. No tremor noted in 4 extremities. Naming and repetition intact. Follows 2 step commands. Aphasia not appreciated Dysarthria present Dysphagia not appreciated Neglect not appreciated POSTURE and GAIT: Sitting posture good. Balance appears reasonable at times. Gait unsteady. PSYCH: Alert, oriented x3, affect appears euthymic. Insight appears intact. - Constitutional Vitals: Vital Signs - 12hr 10/13/19 10/13/19 07:14 08:32 Temperature 37.1 C Pulse Rate 91 H Respiratory 16 Rate Blood Pressure 120/83 120/83 - Allied health notes Allied health notes reviewed: nursing, PT, ST, OT FIMS assessment as documented by PT/OT/ST: Social interaction/Memory/Problem solving Social Interaction FIM Score 5. Supervision (Needs supv. <10%. Needs encouragement to participate.) Memory FIM Score 5. Supervision (Needs cueing <10%, stressful/ unfamiliar situations.) Problem Solving FIM Score 5. Supervision (Needs cueing <10% to solve routine problems.) Transfers Mode of Locomotion: Wheelchair Bed/Chair/Wheelchair Transfers 4. Minimal Assistance (Patient = 75% or more. FIM Score Needs touching.) Locomotion- walk/wheelchair Ambulation Distance 10 - Labs CBC & Chem 7: 10/12/19 06:08 10/12/19 06:08 Labs: Laboratory Results - last 72 hr 10/12/19 10/12/19 06:08 06:08 WBC 5.4 RBC 3.56 L Hgb 12.6 Hct 36.3 MCV 102 H MCH 35 H MCHC 35 H RDW 13.0 L Plt Count 260 Sodium 136 L Potassium 4.4 Chloride 98.1 Carbon Dioxide 24 Anion Gap 18 BUN 9 Creatinine 0.9 Estimated GFR > 60 BUN/Creatinine Ratio 10 Glucose 104 H Calcium 9.6 Assessment and Plan Presumed stroke: MRI did not show evidence however patient still has issues with ataxia and dysarthria present past 24 hours. Secondary stroke prevention started. Prognosis and recovery discussed with patient. Dysarthria: Continue speech therapy for improvement. Seizures: Continue Keppra. Seizure precautions. Hypertension: Continue medications and adjust as needed for normotension. Hold for hypotension Alcohol dependence: Continue CIWA protocol, thiamine, folate ADL dysfunction: OT will work on improving ability to perform ADLs (including assistive devices) to increase independence and decrease caregiver burden and improve functional transfers and mobility training. Difficulty walking: PT will work on gait training and proper use of assistive devices and advance as appropriate to use of stairs and outside ambulation on uneven surfaces. Unsteadiness on feet: PT will work on improving static and dynamic sitting and standing balance as well as proper use of assistive devices to decrease risk of falls. Abnormality of gait: PT will work to improve safety and efficiency of gait through neuromotor training and gait training along with instruction on proper use of assistive devices. Debility: PT & OT will work on improving overall functional status to improve participation with ADLs, mobility and social involvement. Fatigue: PT & OT will work on improving endurance through aerobic exercises and therapeutic activity while monitoring patients tolerance for activity and vital signs as needed. DVT ppx:lovenox Pain: Continue physical modalities in therapy and pain medications as needed to achieve functional pain control. Sleep: Monitor and address as needed. Bowel: Monitor and address as needed. Appetite: Monitor and address as needed. Discharge planning: Pending therapy progress and care plan meeting. Will continue discussion with therapy team, SW, patient and family. Restrictions/ Precautions: Falls WB status: FWB Functional Hx: ADLs: Independent with RW Cognition: Independent Mobility: RW Barriers to Discharge: Decreased mobility and ability to perform self care, balance deficits, ataxia, dysarthria Estimated Length of Stay: 14-21 days Discharge Destination: Home alone
[2019-10-14] MEDS: POTASSIUM CHLORIDE ER 20 MEQ TAB PO SCH ×2 (08:13→21:32)
[2019-10-14] MEDS: levETIRAcetam 500 MG TAB PO SCH ×2 (08:13→21:32)
[2019-10-14] MEDS: THIAMINE 100 MG TAB PO SCH (08:14)
[2019-10-14] MEDS: ASPIRIN EC 81 MG TAB PO SCH (08:14)
[2019-10-14] MEDS: FOLIC ACID 1 MG TAB PO SCH (08:14)
[2019-10-14] MEDS: MULTIVITAMINS ,THERAPEUTIC TAB PO SCH (08:14)
[2019-10-14] MEDS: ENOXAPARIN 40 MG/0.4 ML INJ SUB-Q SCH ×2 (08:15→08:16)
[2019-10-14] MEDS: amLODIPine 10 MG TAB PO SCH (08:15)
--- NOTE | 2019-10-14 18:51 | Progress Note ---
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 Patient was placed on CIWA protocol. Brain MRI showed advanced atrophy with microvascular ischemic changes but no acute abnormality identified as well. There is also a question of seizures, patient is on Keppra however neuro note was uncertain of this diagnosis. Neurology considered EEG but that is not available in the medical record as of yet. Patient continued having issues with slurred speech and did have generalized weakness. He was evaluated by therapy and determined to be an appropriate candidate for rehabilitation. He lives in an extended stay hotel which presented some hesitation we were assured by cook relief that he would have family support and would have living arrangements taking care of at discharge. Patient was in the hospital for 3 days and only required 1 dose of Ativan. Will monitor for any further signs of withdrawal. Alcohol level at admission was negligible. Continue CIWA. At this point we will consider the patient to have clinical signs of a stroke after examination of him. Dysarthria still present and he does have decreased balance as opposed to previously. We'll start the patient on aspirin 81 mg and continue other secondary stroke prevention protocols. Patient is participating in therapy and making reasonable progress. Taking rest breaks as needed. +BM. Denies pain, palpitations, dyspnea, cough, N/V, weakness, or joint pain. CVA: no signs of worsening neurologic function. Dysarthria: Stable. He is understandable. Seems to be more open to exercises now Seizure: No breakthrough seizure during this stay Hypertension: stable on current meds, no hypotension Unsteadiness on feet: remains a high fall risk. Continue to work to improve Decreased awareness of deficits: Continue to reinforce. Up in room moving around on his own. Alcohol dependence: No doses of ativan given, no signs of withdrawal All records, vitals, labs and medications were reviewed. No other issues per patient, nursing or therapy. Objective - Exam Narrative Exam: MUSCULOSKELETAL SPECIALTY EXAM CONSTITUTIONAL: Well developed, well nourished, appropriately groomed. RIGHT hand dominant. RESPIRATORY: CTAB. no increased work of breathing CARDIOVASCULAR: RRR. no swelling, edema or tenderness in BUE or BLE. All extremities warm. GI: soft, NTTP, nondistended. INTEGUMENTARY: Normal, no lesion, rash, masses or bruising noted in extremities. MUSCULOSKELETAL: BUE and BLE normal without defect, crepitus, subluxation, effusion, arthritic changes or TTP. R 5 /5 L 5 /5 ROM decreased on RUE Tone normal NEURO: CN II - CN XII grossly intact Sensation intact in all extremities Coordination impaired. No tremor noted in 4 extremities. Naming and repetition intact. Follows 2 step commands. Aphasia not appreciated Dysarthria present Dysphagia not appreciated Neglect not appreciated POSTURE and GAIT: Sitting posture good. Balance appears reasonable at times. Gait unsteady. PSYCH: Alert, oriented x3, affect appears euthymic. Insight appears intact. - Constitutional Vitals: Vital Signs - 12hr 10/14/19 10/14/19 10/14/19 07:20 07:30 08:15 Temperature 37.0 C 37.0 C Pulse Rate 88 88 88 Respiratory 18 18 Rate Blood Pressure 120/84 120/84 Blood Pressure 120/84 [Right] O2 Sat by Pulse 99 99 Oximetry 10/14/19 10/14/19 10/14/19 11:21 12:00 16:01 Temperature 36.6 C 36.3 C L 36.7 C Pulse Rate 94 H 94 H 87 Respiratory 16 16 20 Rate Blood Pressure 135/92 140/87 Blood Pressure 135/92 [Right] O2 Sat by Pulse 100 100 99 Oximetry - Allied health notes Allied health notes reviewed: nursing, PT, ST, OT FIMS assessment as documented by PT/OT/ST: Social interaction/Memory/Problem solving Social Interaction FIM Score 6. Mod. [place] (Mostly appropriate. May need meds. No supv.) Memory FIM Score 5. Supervision (Needs cueing <10%, stressful/ unfamiliar situations.) Problem Solving FIM Score 5. Supervision (Needs cueing <10% to solve routine problems.) Transfers Mode of Locomotion: Wheelchair Bed/Chair/Wheelchair Transfers 5. Supervision (Needs supv. or set-up for FIM Score sliding board, foot rests.) Locomotion- walk/wheelchair Ambulation Distance 10 - Labs CBC & Chem 7: 10/12/19 06:08 10/12/19 06:08 Labs: Laboratory Results - last 72 hr 10/12/19 10/12/19 06:08 06:08 WBC 5.4 RBC 3.56 L Hgb 12.6 Hct 36.3 MCV 102 H MCH 35 H MCHC 35 H RDW 13.0 L Plt Count 260 Sodium 136 L Potassium 4.4 Chloride 98.1 Carbon Dioxide 24 Anion Gap 18 BUN 9 Creatinine 0.9 Estimated GFR > 60 BUN/Creatinine Ratio 10 Glucose 104 H Calcium 9.6 Assessment and Plan Presumed stroke: MRI did not show evidence however patient still has issues with ataxia and dysarthria present past 24 hours. Secondary stroke prevention started. Prognosis and recovery discussed with patient. Dysarthria: Continue speech therapy for improvement. Seizures: Continue Keppra. Seizure precautions. Hypertension: Continue medications and adjust as needed for normotension. Hold for hypotension Alcohol dependence: Continue CIWA protocol, thiamine, folate ADL dysfunction: OT will work on improving ability to perform ADLs (including assistive devices) to increase independence and decrease caregiver burden and improve functional transfers and mobility training. Difficulty walking: PT will work on gait training and proper use of assistive devices and advance as appropriate to use of stairs and outside ambulation on uneven surfaces. Unsteadiness on feet: PT will work on improving static and dynamic sitting and standing balance as well as proper use of assistive devices to decrease risk of falls. Abnormality of gait: PT will work to improve safety and efficiency of gait through neuromotor training and gait training along with instruction on proper use of assistive devices. Debility: PT & OT will work on improving overall functional status to improve participation with ADLs, mobility and social involvement. Fatigue: PT & OT will work on improving endurance through aerobic exercises and therapeutic activity while monitoring patients tolerance for activity and vital signs as needed. DVT ppx:lovenox Pain: Continue physical modalities in therapy and pain medications as needed to achieve functional pain control. Sleep: Monitor and address as needed. Bowel: Monitor and address as needed. Appetite: Monitor and address as needed. Discharge planning: Pending therapy progress and care plan meeting. Will continue discussion with therapy team, SW, patient and family. Restrictions/ Precautions: Falls WB status: FWB Functional Hx: ADLs: Independent with RW Cognition: Independent Mobility: RW Barriers to Discharge: Decreased mobility and ability to perform self care, balance deficits, ataxia, dysarthria Estimated Length of Stay: 14-21 days Discharge Destination: Home alone
[2019-10-14] MEDS: ACETAMINOPHEN 325 MG TAB PO PRN (20:12)
[2019-10-15] MEDS: levETIRAcetam 500 MG TAB PO SCH ×2 (11:09→22:55)
[2019-10-15] MEDS: POTASSIUM CHLORIDE ER 20 MEQ TAB PO SCH ×2 (11:09→22:55)
[2019-10-15] MEDS: ASPIRIN EC 81 MG TAB PO SCH (11:09)
[2019-10-15] MEDS: THIAMINE 100 MG TAB PO SCH (11:09)
[2019-10-15] MEDS: MULTIVITAMINS ,THERAPEUTIC TAB PO SCH (11:09)
[2019-10-15] MEDS: FOLIC ACID 1 MG TAB PO SCH (11:09)
[2019-10-15] MEDS: amLODIPine 10 MG TAB PO SCH (11:14)
--- NOTE | 2019-10-15 14:48 | Progress Note ---
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 Patient was placed on CIWA protocol. Brain MRI showed advanced atrophy with microvascular ischemic changes but no acute abnormality identified as well. There is also a question of seizures, patient is on Keppra however neuro note was uncertain of this diagnosis. Neurology considered EEG but that is not available in the medical record as of yet. Patient continued having issues with slurred speech and did have generalized weakness. He was evaluated by therapy and determined to be an appropriate candidate for rehabilitation. He lives in an extended stay hotel which presented some hesitation we were assured by certified corporate travel executive that he would have family support and would have living arrangements taking care of at discharge. Patient was in the hospital for 3 days and only required 1 dose of Ativan. Will monitor for any further signs of withdrawal. Alcohol level at admission was negligible. Continue CIWA. At this point we will consider the patient to have clinical signs of a stroke after examination of him. Dysarthria still present and he does have decreased balance as opposed to previously. We'll start the patient on aspirin 81 mg and continue other secondary stroke prevention protocols. Patient is participating in therapy and making reasonable progress. Taking rest breaks as needed. +BM. Denies pain, palpitations, dyspnea, cough, N/V, weakness, or joint pain. Patient was refusing Lovenox earlier. Discussed with him the importance of taking the DVT prophylaxis. He states that he wanted to take Eliquis which he took previously for what sounds like a possible DVT. He does not have atrial fibrillation or any other indication to be on Eliquis. He has a high propensity to falls and would be better served on a low dose of Lovenox. CVA: no signs of worsening neurologic function. No PSD, spasticity or SHS. Dysarthria: Stable. He is understandable. Seems to be more open to exercises now Seizure: No breakthrough seizure during this stay Hypertension: stable on current meds, no hypotension Unsteadiness on feet: remains a high fall risk. Continue to work to improve Decreased awareness of deficits: Continue to reinforce. Up in room moving around on his own. Alcohol dependence: No doses of ativan given, no signs of withdrawal Discussed during team conference. Patient is improving his ability to ambulate however is still not 100% stable and is not safe to ambulate alone area and I have found him moving about his room while holding onto furniture and nassar. His tremors have decreased tremendously. We'll need to continue to work with him since he will be going home alone any will need to be at a little bit higher level before he can safely accomplish that. We'll need a tall rolling walker for discharge equipment. All records, vitals, labs and medications were reviewed. No other issues per patient, nursing or therapy. Objective - Exam Narrative Exam: MUSCULOSKELETAL SPECIALTY EXAM CONSTITUTIONAL: Well developed, well nourished, appropriately groomed. RIGHT hand dominant. RESPIRATORY: CTAB. no increased work of breathing CARDIOVASCULAR: RRR. no swelling, edema or tenderness in BUE or BLE. All extremities warm. GI: soft, NTTP, nondistended. INTEGUMENTARY: Normal, no lesion, rash, masses or bruising noted in extremities. MUSCULOSKELETAL: BUE and BLE normal without defect, crepitus, subluxation, effusion, arthritic changes or TTP. R 5 /5 L 5 /5 ROM decreased on RUE Tone normal NEURO: CN II - CN XII grossly intact Sensation intact in all extremities Coordination impaired. No tremor noted in 4 extremities. Naming and repetition intact. Follows 2 step commands. Aphasia not appreciated Dysarthria present Dysphagia not appreciated Neglect not appreciated POSTURE and GAIT: Sitting posture good. Balance appears reasonable at times. Gait unsteady. PSYCH: Alert, oriented x3, affect appears euthymic. - Constitutional Vitals: Vital Signs - 12hr 10/15/19 10/15/19 07:07 11:14 Temperature 36.7 C 36.7 C Pulse Rate 82 73 Respiratory 20 20 Rate Blood Pressure 136/91 127/82 O2 Sat by Pulse 98 99 Oximetry - Allied health notes Allied health notes reviewed: nursing, PT, ST, OT FIMS assessment as documented by PT/OT/ST: Social interaction/Memory/Problem solving Social Interaction FIM Score 6. Mod. [place] (Mostly appropriate. May need meds. No supv.) Memory FIM Score 5. Supervision (Needs cueing <10%, stressful/ unfamiliar situations.) Problem Solving FIM Score 5. Supervision (Needs cueing <10% to solve routine problems.) Transfers Mode of Locomotion: Wheelchair Bed/Chair/Wheelchair Transfers 5. Supervision (Needs supv. or set-up for FIM Score sliding board, foot rests.) Locomotion- walk/wheelchair Ambulation Distance 10 - Labs CBC & Chem 7: 10/12/19 06:08 10/12/19 06:08 Assessment and Plan Presumed stroke: MRI did not show evidence however patient still has issues with ataxia and dysarthria present past 24 hours. Secondary stroke prevention started. Prognosis and recovery discussed with patient. Dysarthria: Continue speech therapy for improvement. Seizures: Continue Keppra. Seizure precautions. Hypertension: Continue medications and adjust as needed for normotension. Hold for hypotension Alcohol dependence: Continue CIWA protocol, thiamine, folate ADL dysfunction: OT will work on improving ability to perform ADLs (including assistive devices) to increase independence and decrease caregiver burden and improve functional transfers and mobility training. Difficulty walking: PT will work on gait training and proper use of assistive devices and advance as appropriate to use of stairs and outside ambulation on uneven surfaces. Unsteadiness on feet: PT will work on improving static and dynamic sitting and standing balance as well as proper use of assistive devices to decrease risk of falls. Abnormality of gait: PT will work to improve safety and efficiency of gait through neuromotor training and gait training along with instruction on proper use of assistive devices. Debility: PT & OT will work on improving overall functional status to improve participation with ADLs, mobility and social involvement. Fatigue: PT & OT will work on improving endurance through aerobic exercises and therapeutic activity while monitoring patients tolerance for activity and vital signs as needed. DVT ppx:lovenox Pain: Continue physical modalities in therapy and pain medications as needed to achieve functional pain control. Sleep: Monitor and address as needed. Bowel: Monitor and address as needed. Appetite: Monitor and address as needed. Discharge planning: Pending therapy progress and care plan meeting. Will continue discussion with therapy team, SW, patient and family. Restrictions/ Precautions: Falls WB status: FWB Functional Hx: ADLs: Independent with RW Cognition: Independent Mobility: RW Barriers to Discharge: Decreased mobility and ability to perform self care, balance deficits, ataxia, dysarthria Estimated Length of Stay: 14-21 days Discharge Destination: Home alone
[2019-10-15] MEDS: ENOXAPARIN 40 MG/0.4 ML INJ SUB-Q SCH (16:17)
[2019-10-16] MEDS: amLODIPine 10 MG TAB PO SCH (11:34)
[2019-10-16] MEDS: FOLIC ACID 1 MG TAB PO SCH (11:34)
[2019-10-16] MEDS: ASPIRIN EC 81 MG TAB PO SCH (11:34)
[2019-10-16] MEDS: levETIRAcetam 500 MG TAB PO SCH ×2 (11:34→21:32)
[2019-10-16] MEDS: POTASSIUM CHLORIDE ER 20 MEQ TAB PO SCH ×2 (11:35→21:33)
[2019-10-16] MEDS: MULTIVITAMINS ,THERAPEUTIC TAB PO SCH (11:35)
[2019-10-16] MEDS: ENOXAPARIN 40 MG/0.4 ML INJ SUB-Q SCH (11:37)
[2019-10-16] MEDS: THIAMINE 100 MG TAB PO SCH (12:35)
--- NOTE | 2019-10-16 13:43 | Progress Note ---
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 Patient was placed on CIWA protocol. Brain MRI showed advanced atrophy with microvascular ischemic changes but no acute abnormality identified as well. There is also a question of seizures, patient is on Keppra however neuro note was uncertain of this diagnosis. Neurology considered EEG but that is not available in the medical record as of yet. Patient continued having issues with slurred speech and did have generalized weakness. He was evaluated by therapy and determined to be an appropriate candidate for rehabilitation. He lives in an extended stay hotel which presented some hesitation we were assured by title attorney that he would have family support and would have living arrangements taking care of at discharge. Patient was in the hospital for 3 days and only required 1 dose of Ativan. Will monitor for any further signs of withdrawal. Alcohol level at admission was negligible. Continue CIWA. At this point we will consider the patient to have clinical signs of a stroke after examination of him. Dysarthria still present and he does have decreased balance as opposed to previously. We'll start the patient on aspirin 81 mg and continue other secondary stroke prevention protocols. Interval history Patient is participating in therapy and making reasonable progress. Taking rest breaks as needed. +BM. Denies pain, palpitations, dyspnea, cough, N/V, or joint pain. CVA: no signs of worsening neurologic function. No PSD, spasticity or SHS. Dysarthria: Stable. He is understandable. Seems to be more open to exercises now Seizure: No breakthrough seizure during this stay Hypertension: stable on current meds, no hypotension Unsteadiness on feet: remains a high fall risk. Continue to work to improve Decreased awareness of deficits: Continue to reinforce. Up in room moving around on his own. Alcohol dependence: No doses of ativan given, no signs of withdrawal All records, vitals, labs and medications were reviewed. No other issues per patient, nursing or therapy. Objective - Exam Narrative Exam: MUSCULOSKELETAL SPECIALTY EXAM CONSTITUTIONAL: Well developed, well nourished, appropriately groomed. RIGHT hand dominant. RESPIRATORY: CTAB. no increased work of breathing CARDIOVASCULAR: RRR. no swelling, edema or tenderness in BUE or BLE. All extremities warm. GI: soft, NTTP, nondistended. INTEGUMENTARY: Normal, no lesion, rash, masses or bruising noted in extremities. MUSCULOSKELETAL: BUE and BLE normal without defect, crepitus, subluxation, effusion, arthritic changes or TTP. R 5 /5 L 5 /5 ROM decreased on RUE Tone normal NEURO: CN II - CN XII grossly intact Sensation intact in all extremities Coordination impaired. No tremor noted in 4 extremities. Naming and repetition intact. Follows 2 step commands. Aphasia not appreciated Dysarthria present Dysphagia not appreciated Neglect not appreciated POSTURE and GAIT: Sitting posture good. Balance appears reasonable at times. Gait unsteady. PSYCH: Alert, oriented x3, affect appears euthymic. - Constitutional Vitals: Vital Signs - 12hr 10/16/19 10/16/19 02:00 07:38 Temperature 36.6 C Pulse Rate 78 Respiratory 17 18 Rate Blood Pressure 121/79 O2 Sat by Pulse 99 Oximetry - Allied health notes Allied health notes reviewed: nursing, PT, ST, OT FIMS assessment as documented by PT/OT/ST: Social interaction/Memory/Problem solving Social Interaction FIM Score 5. Supervision (Needs supv. <10%. Needs encouragement to participate.) Memory FIM Score 5. Supervision (Needs cueing <10%, stressful/ unfamiliar situations.) Problem Solving FIM Score 5. Supervision (Needs cueing <10% to solve routine problems.) Transfers Mode of Locomotion: Wheelchair Bed/Chair/Wheelchair Transfers 5. Supervision (Needs supv. or set-up for FIM Score sliding board, foot rests.) Locomotion- walk/wheelchair Ambulation Distance 10 - Labs CBC & Chem 7: 10/12/19 06:08 10/12/19 06:08 Assessment and Plan Presumed stroke: MRI did not show evidence however patient still has issues with ataxia and dysarthria present past 24 hours. Secondary stroke prevention start ed. Prognosis and recovery discussed with patient. Dysarthria: Continue speech therapy for improvement. Seizures: Continue Keppra. Seizure precautions. Hypertension: Continue medications and adjust as needed for normotension. Hold for hypotension Alcohol dependence: Continue CIWA protocol, thiamine, folate ADL dysfunction: OT will work on improving ability to perform ADLs (including assistive devices) to increase independence and decrease caregiver burden and improve functional transfers and mobility training. Difficulty walking: PT will work on gait training and proper use of assistive devices and advance as appropriate to use of stairs and outside ambulation on uneven surfaces. Unsteadiness on feet: PT will work on improving static and dynamic sitting and standing balance as well as proper use of assistive devices to decrease risk of falls. Abnormality of gait: PT will work to improve safety and efficiency of gait through neuromotor training and gait training along with instruction on proper use of assistive devices. Debility: PT & OT will work on improving overall functional status to improve participation with ADLs, mobility and social involvement. Fatigue: PT & OT will work on improving endurance through aerobic exercises and therapeutic activity while monitoring patients tolerance for activity and vital signs as needed. DVT ppx:lovenox Pain: Continue physical modalities in therapy and pain medications as needed to achieve functional pain control. Sleep: Monitor and address as needed. Bowel: Monitor and address as needed. Appetite: Monitor and address as needed. Discharge planning: Pending therapy progress and care plan meeting. Will continue discussion with therapy team, SW, patient and family. Restrictions/ Precautions: Falls WB status: FWB Functional Hx: ADLs: Independent with RW Cognition: Independent Mobility: RW Barriers to Discharge: Decreased mobility and ability to perform self care, balance deficits, ataxia, dysarthria Estimated Length of Stay: 14-21 days Discharge Destination: Home alone
[2019-10-17] MEDS: ASPIRIN EC 81 MG TAB PO SCH (08:24)
[2019-10-17] MEDS: amLODIPine 10 MG TAB PO SCH (08:24)
[2019-10-17] MEDS: THIAMINE 100 MG TAB PO SCH (08:25)
[2019-10-17] MEDS: POTASSIUM CHLORIDE ER 20 MEQ TAB PO SCH ×2 (08:25→21:13)
[2019-10-17] MEDS: levETIRAcetam 500 MG TAB PO SCH ×2 (08:25→21:13)
[2019-10-17] MEDS: MULTIVITAMINS ,THERAPEUTIC TAB PO SCH (08:25)
[2019-10-17] MEDS: ENOXAPARIN 40 MG/0.4 ML INJ SUB-Q SCH (08:25)
[2019-10-17] MEDS: FOLIC ACID 1 MG TAB PO SCH (08:25)
--- NOTE | 2019-10-17 14:33 | Progress Note ---
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 Patient was placed on CIWA protocol. Brain MRI showed advanced atrophy with microvascular ischemic changes but no acute abnormality identified as well. There is also a question of seizures, patient is on Keppra however neuro note was uncertain of this diagnosis. Neurology considered EEG but that is not available in the medical record as of yet. Patient continued having issues with slurred speech and did have generalized weakness. He was evaluated by therapy and determined to be an appropriate candidate for rehabilitation. He lives in an extended stay hotel which presented some hesitation we were assured by federal java developer that he would have family support and would have living arrangements taking care of at discharge. Patient was in the hospital for 3 days and only required 1 dose of Ativan. Will monitor for any further signs of withdrawal. Alcohol level at admission was negligible. Continue CIWA. At this point we will consider the patient to have clinical signs of a stroke after examination of him. Dysarthria still present and he does have decreased balance as opposed to previously. We'll start the patient on aspirin 81 mg and continue other secondary stroke prevention protocols. Interval history Patient is participating in therapy and making reasonable progress. Taking rest breaks as needed. +BM. Denies pain, palpitations, dyspnea, cough, N/V, or joint pain. CVA: no signs of worsening neurologic function. No PSD, spasticity or SHS. Dysarthria: Stable. He is understandable. Seems to be more open to exercises now Seizure: No breakthrough seizure during this stay Hypertension: stable on current meds, no hypotension Unsteadiness on feet: remains a high fall risk. Continue to work to improve Decreased awareness of deficits: Continue to reinforce. Up in room moving around on his own. Alcohol dependence: No doses of ativan given, no signs of withdrawal Discussed possibility of going to [facility] versus [facility] or other type of facility for some form of assistance at discharge. Patient is desirous of having someone else available to provide some assistance however not sure if his financial situation will cover the cost. From a medical and physical standpoint he would be more appropriate for an [facility] however that would also be the more expensive option. Patient still has significant balance deficits and mobility and ADL deficits that require further work to improve him before he will be able to be independent at home. Barring the ability to get to an [facility] we will continue to work with him as much as possible to improve his independence to ensure a safe discharge. All records, vitals, labs and medications were reviewed. No other issues per patient, nursing or therapy. Objective - Exam Narrative Exam: MUSCULOSKELETAL SPECIALTY EXAM CONSTITUTIONAL: Well developed, well nourished, appropriately groomed. RIGHT hand dominant. RESPIRATORY: CTAB. no increased work of breathing CARDIOVASCULAR: RRR. no swelling, edema or tenderness in BUE or BLE. All extremities warm. GI: soft, NTTP, nondistended. INTEGUMENTARY: Normal, no lesion, rash, masses or bruising noted in extremities. MUSCULOSKELETAL: BUE and BLE normal without defect, crepitus, subluxation, effusion, arthritic changes or TTP. R 5 /5 L 5 /5 ROM decreased on RUE Tone normal NEURO: CN II - CN XII grossly intact Sensation intact in all extremities Coordination impaired. No tremor noted in 4 extremities. Naming and repetition intact. Follows 2 step commands. Aphasia not appreciated Dysarthria present Dysphagia not appreciated Neglect not appreciated POSTURE and GAIT: Sitting posture good. Balance appears reasonable at times. Gait unsteady. PSYCH: Alert, oriented x3, affect appears euthymic. - Constitutional Vitals: Vital Signs - 12hr 10/17/19 10/17/19 10/17/19 03:55 04:40 08:06 Temperature 36.8 C 36.8 C 36.4 C Pulse Rate 84 83 77 Respiratory 16 16 20 Rate Blood Pressure 118/80 114/79 Blood Pressure 118/80 [Right] O2 Sat by Pulse 98 100 99 Oximetry - Allied health notes Allied health notes reviewed: nursing, PT, ST, OT FIMS assessment as documented by PT/OT/ST: Social interaction/Memory/Problem solving Social Interaction FIM Score 5. Supervision (Needs supv. <10%. Needs encouragement to participate.) Memory FIM Score 5. Supervision (Needs cueing <10%, stressful/ unfamiliar situations.) Problem Solving FIM Score 5. Supervision (Needs cueing <10% to solve routine problems.) Transfers Mode of Locomotion: Wheelchair Bed/Chair/Wheelchair Transfers 5. Supervision (Needs supv. or set-up for FIM Score sliding board, foot rests.) Locomotion- walk/wheelchair Ambulation Distance 10 - Labs CBC & Chem 7: 10/12/19 06:08 10/12/19 06:08 Assessment and Plan Presumed stroke: MRI did not show evidence however patient still has issues with ataxia and dysarthria present past 24 hours. Secondary stroke prevention started. Prognosis and recovery discussed with patient. Dysarthria: Continue speech therapy for improvement. Seizures: Continue Keppra. Seizure precautions. Hypertension: Continue medications and adjust as needed for normotension. Hold for hypotension Alcohol dependence: Continue CIWA protocol, thiamine, folate ADL dysfunction: OT will work on improving ability to perform ADLs (including assistive devices) to increase independence and decrease caregiver burden and improve functional transfers and mobility training. Difficulty walking: PT will work on gait training and proper use of assistive devices and advance as appropriate to use of stairs and outside ambulation on u cha surfaces. Unsteadiness on feet: PT will work on improving static and dynamic sitting and standing balance as well as proper use of assistive devices to decrease risk of falls. Abnormality of gait: PT will work to improve safety and efficiency of gait through neuromotor training and gait training along with instruction on proper use of assistive devices. Debility: PT & OT will work on improving overall functional status to improve participation with ADLs, mobility and social involvement. Fatigue: PT & OT will work on improving endurance through aerobic exercises and therapeutic activity while monitoring patients tolerance for activity and vital signs as needed. DVT ppx:lovenox Pain: Continue physical modalities in therapy and pain medications as needed to achieve functional pain control. Sleep: Monitor and address as needed. Bowel: Monitor and address as needed. Appetite: Monitor and address as needed. Discharge planning: Pending therapy progress and care plan meeting. Will continue discussion with therapy team, SW, patient and family. Restrictions/ Precautions: Falls WB status: FWB Functional Hx: ADLs: Independent with RW Cognition: Independent Mobility: RW Barriers to Discharge: Decreased mobility and ability to perform self care, balance deficits, ataxia, dysarthria Estimated Length of Stay: 14-21 days Discharge Destination: Home alone or possibly facility based pending outcome and financial situation
[2019-10-17] MEDS: ACETAMINOPHEN 325 MG TAB PO PRN (20:13)
[2019-10-18] MEDS: levETIRAcetam 500 MG TAB PO SCH ×2 (08:33→21:59)
[2019-10-18] MEDS: POTASSIUM CHLORIDE ER 20 MEQ TAB PO SCH ×2 (08:33→21:59)
[2019-10-18] MEDS: FOLIC ACID 1 MG TAB PO SCH (08:33)
[2019-10-18] MEDS: ASPIRIN EC 81 MG TAB PO SCH (08:33)
[2019-10-18] MEDS: THIAMINE 100 MG TAB PO SCH (08:33)
[2019-10-18] MEDS: MULTIVITAMINS ,THERAPEUTIC TAB PO SCH (08:33)
[2019-10-18] MEDS: amLODIPine 10 MG TAB PO SCH (08:33)
[2019-10-18] MEDS: ENOXAPARIN 40 MG/0.4 ML INJ SUB-Q SCH (08:33)
[2019-10-19] MEDS: levETIRAcetam 500 MG TAB PO SCH ×2 (07:56→21:26)
[2019-10-19] MEDS: THIAMINE 100 MG TAB PO SCH (07:57)
[2019-10-19] MEDS: POTASSIUM CHLORIDE ER 20 MEQ TAB PO SCH ×2 (07:57→21:26)
[2019-10-19] MEDS: ENOXAPARIN 40 MG/0.4 ML INJ SUB-Q SCH (07:57)
[2019-10-19] MEDS: amLODIPine 10 MG TAB PO SCH (07:57)
[2019-10-19] MEDS: MULTIVITAMINS ,THERAPEUTIC TAB PO SCH (07:57)
[2019-10-19] MEDS: FOLIC ACID 1 MG TAB PO SCH (07:57)
[2019-10-19] MEDS: ASPIRIN EC 81 MG TAB PO SCH (07:57)
--- NOTE | 2019-10-19 09:55 | Progress Note ---
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 Patient was placed on CIWA protocol. Brain MRI showed advanced atrophy with microvascular ischemic changes but no acute abnormality identified as well. There is also a question of seizures, patient is on Keppra however neuro note was uncertain of this diagnosis. Neurology considered EEG but that is not available in the medical record as of yet. Patient continued having issues with slurred speech and did have generalized weakness. He was evaluated by therapy and determined to be an appropriate candidate for rehabilitation. He lives in an extended stay hotel which presented some hesitation we were assured by meat butcher that he would have family support and would have living arrangements taking care of at discharge. Patient was in the hospital for 3 days and only required 1 dose of Ativan. Will monitor for any further signs of withdrawal. Alcohol level at admission was negligible. Continue CIWA. At this point we will consider the patient to have clinical signs of a stroke after examination of him. Dysarthria still present and he does have decreased balance as opposed to previously. We'll start the patient on aspirin 81 mg and continue other secondary stroke prevention protocols. Interval history Patient is participating in therapy and making reasonable progress. Taking rest breaks as needed. +BM. Denies pain, palpitations, dyspnea, cough, N/V, or joint pain. CVA: no signs of worsening neurologic function. No PSD, spasticity or SHS. Dysarthria: Stable. He is understandable. Seems to be more open to exercises now Seizure: No breakthrough seizure during this stay Hypertension: stable on current meds, no hypotension Unsteadiness on feet: remains a high fall risk. Continue to work to improve Decreased awareness of deficits: Continue to reinforce. Up in room moving around on his own. Alcohol dependence: No doses of ativan given, no signs of withdrawal Discussed possibility of going to [facility] versus assisted facility or other type of facility for some form of assistance at discharge. Patient is desirous of having someone else available to provide some assistance however not sure if his financial situation will cover the cost. From a medical and physical standpoint he would be more appropriate for an [facility] however that would also be the more expensive option. Patient still has significant balance deficits and mobility and ADL deficits that require further work to improve him before he will be able to be independent at home. Barring the ability to get to an [facility] we will continue to work with him as much as possible to improve his independence to ensure a safe discharge. All records, vitals, labs and medications were reviewed. No other issues per patient, nursing or therapy. Objective - Exam Narrative Exam: MUSCULOSKELETAL SPECIALTY EXAM CONSTITUTIONAL: Well developed, well nourished, appropriately groomed. RIGHT hand dominant. RESPIRATORY: CTAB. no increased work of breathing CARDIOVASCULAR: RRR. no swelling, edema or tenderness in BUE or BLE. All extremities warm. GI: soft, NTTP, nondistended. INTEGUMENTARY: Normal, no lesion, rash, masses or bruising noted in extremities. MUSCULOSKELETAL: BUE and BLE normal without defect, crepitus, subluxation, effusion, arthritic changes or TTP. R 5 /5 L 5 /5 ROM decreased on RUE Tone normal NEURO: CN II - CN XII grossly intact Sensation intact in all extremities Coordination impaired. No tremor noted in 4 extremities. Naming and repetition intact. Follows 2 step commands. Aphasia not appreciated Dysarthria present Dysphagia not appreciated Neglect not appreciated POSTURE and GAIT: Sitting posture good. Balance appears reasonable at times. Gait unsteady. PSYCH: Alert, oriented x3, affect appears euthymic. - Constitutional Vitals: Vital Signs - 12hr 10/19/19 07:41 Temperature 36.6 C Pulse Rate 71 Respiratory 18 Rate Blood Pressure 127/85 O2 Sat by Pulse 100 Oximetry - Allied health notes Allied health notes reviewed: nursing, PT, ST, OT FIMS assessment as documented by PT/OT/ST: Social interaction/Memory/Problem solving Social Interaction FIM Score 5. Supervision (Needs supv. <10%. Needs encouragement to participate.) Memory FIM Score 5. Supervision (Needs cueing <10%, stressful/ unfamiliar situations.) Problem Solving FIM Score 5. Supervision (Needs cueing <10% to solve routine problems.) Transfers Mode of Locomotion: Wheelchair Bed/Chair/Wheelchair Transfers 5. Supervision (Needs supv. or set-up for FIM Score sliding board, foot rests.) Locomotion- walk/wheelchair Ambulation Distance 10 - Labs CBC & Chem 7: 10/12/19 06:08 10/12/19 06:08 Assessment and Plan Presumed stroke: MRI did not show evidence however patient still has issues with ataxia and dysarthria present past 24 hours. Secondary stroke prevention started. Prognosis and recovery discussed with patient. Dysarthria: Continue speech therapy for improvement. Seizures: Continue Keppra. Seizure precautions. Hypertension: Continue medications and adjust as needed for normotension. Hold for hypotension Alcohol dependence: Continue CIWA protocol, thiamine, folate ADL dysfunction: OT will work on improving ability to perform ADLs (including assistive devices) to increase independence and decrease caregiver burden and improve functional transfers and mobility training. Difficulty walking: PT will work on gait training and proper use of assistive devices and advance as appropriate to use of stairs and outside ambulation on uneven surfaces. Unsteadiness on feet: PT will work on improving static and dynamic sitting and standing balance as well as proper use of assistive devices to decrease risk of falls. Abnormality of gait: PT will work to improve safety and efficiency of gait through neuromotor training and gait training along with instruction on proper use of assistive devices. Debility: PT & OT will work on improving overall functional status to improve participation with ADLs, mobility and social involvement. Fatigue: PT & OT will work on improving endurance through aerobic exercises and therapeutic activity while monitoring patients tolerance for activity and vital signs as needed. DVT ppx:lovenox Pain: Continue physical modalities in therapy and pain medications as needed to achieve functional pain control. Sleep: Monitor and address as needed. Bowel: Monitor and address as needed. Appetite: Monitor and address as needed. Discharge planning: Pending therapy progress and care plan meeting. Will continue discussion with therapy team, SW, patient and family. Restrictions/ Precautions: Falls WB status: FWB Functional Hx: ADLs: Independent with RW Cognition: Independent Mobility: RW Barriers to Discharge: Decreased mobility and ability to perform self care, balance deficits, ataxia, dysarthria Estimated Length of Stay: 14-21 days Discharge Destination: Home alone or possibly facility based pending outcome and financial situation
[2019-10-19] MEDS: ACETAMINOPHEN 325 MG TAB PO PRN (21:29)
[2019-10-20 07:27] LABS: Hematocrit 35.5 % (35.5-45.6); Hemoglobin 11.8 gm/dl (11.8-15.2); Mean Corpuscular HGB Conc 33 % (32-34); Mean Corpuscular Volume 101 fl (84-94); Platelet Count 307 K/mm3 (140-440); Red Cell Distribution Width 12.8 % (13.2-15.2)
[2019-10-20 07:50] LABS: BUN/Creatinine Ratio 11; Blood Urea Nitrogen 9 mg/dL (9-20); Calcium 9.4 mg/dL (8.4-10.2); Hemolysis Index 1
[2019-10-20] MEDS: levETIRAcetam 500 MG TAB PO SCH ×2 (08:10→21:32)
[2019-10-20] MEDS: ASPIRIN EC 81 MG TAB PO SCH (08:10)
[2019-10-20] MEDS: amLODIPine 10 MG TAB PO SCH (08:10)
[2019-10-20] MEDS: ENOXAPARIN 40 MG/0.4 ML INJ SUB-Q SCH (08:11)
[2019-10-20] MEDS: THIAMINE 100 MG TAB PO SCH (08:11)
[2019-10-20] MEDS: FOLIC ACID 1 MG TAB PO SCH (08:11)
[2019-10-20] MEDS: POTASSIUM CHLORIDE ER 20 MEQ TAB PO SCH ×2 (08:11→21:32)
[2019-10-20] MEDS: MULTIVITAMINS ,THERAPEUTIC TAB PO SCH (08:11)
--- NOTE | 2019-10-20 17:09 | Progress Note ---
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 Patient was placed on CIWA protocol. Brain MRI showed advanced atrophy with microvascular ischemic changes but no acute abnormality identified as well. There is also a question of seizures, patient is on Keppra however neuro note was uncertain of this diagnosis. Neurology considered EEG but that is not available in the medical record as of yet. Patient continued having issues with slurred speech and did have generalized weakness. He was evaluated by therapy and determined to be an appropriate candidate for rehabilitation. He lives in an extended stay hotel which presented some hesitation we were assured by breakfast cook that he would have family support and would have living arrangements taking care of at discharge. Patient was in the hospital for 3 days and only required 1 dose of Ativan. Will monitor for any further signs of withdrawal. Alcohol level at admission was negligible. Continue CIWA. At this point we will consider the patient to have clinical signs of a stroke after examination of him. Dysarthria still present and he does have decreased balance as opposed to previously. We'll start the patient on aspirin 81 mg and continue other secondary stroke prevention protocols. Interval history Patient is participating in therapy and making reasonable progress. Taking rest breaks as needed. +BM. Denies pain, palpitations, dyspnea, cough, N/V, or joint pain. Patient does admit to allover muscle soreness. Attributes this to increased activity with therapy and hurting in muscles he did not know he had. Has not been made better with Tylenol, will give short dose of Aleve to attempt to relieve his muscle soreness and will ask therapy to apply some heat. No signs of withdrawal syndrome so will DC CIWA protocol. Patient also looking to discharge to [facility] or other type facility, have asked that social insurance administrator come and visit him to give him other options. CVA: no signs of worsening neurologic function. No PSD, spasticity or SHS. Dysarthria: Stable. He is understandable. Seems to be more open to exercises now Seizure: No breakthrough seizure during this stay Hypertension: stable on current meds, no hypotension Unsteadiness on feet: remains a high fall risk. Continue to work to improve Decreased awareness of deficits: Continue to reinforce. Up in room moving around on his own. Alcohol dependence: No doses of ativan given, no signs of withdrawal, DC WA protocol Discussed possibility of going to [facility] versus nursing home facility or other type of facility for some form of assistance at discharge. Patient is desirous of having someone else available to provide some assistance however not sure if his financial situation will cover the cost. From a medical and physical standpoint he would be more appropriate for an [facility] however that would also be the more expensive option. Patient still has significant balance deficits and mobility and ADL deficits that require further work to improve him before he will be able to be independent at home. Barring the ability to get to an [facility] we will continue to work with him as much as possible to improve his independence to ensure a safe discharge. All records, vitals, labs and medications were reviewed. No other issues per patient, nursing or therapy. Objective - Exam Narrative Exam: MUSCULOSKELETAL SPECIALTY EXAM CONSTITUTIONAL: Well developed, well nourished, appropriately groomed. RIGHT hand dominant. RESPIRATORY: CTAB. no increased work of breathing CARDIOVASCULAR: RRR. no swelling, edema or tenderness in BUE or BLE. All extremities warm. GI: soft, NTTP, nondistended. INTEGUMENTARY: Normal, no lesion, rash, masses or bruising noted in extremities. MUSCULOSKELETAL: BUE and BLE normal without defect, crepitus, subluxation, effusion, arthritic changes or TTP. R 5 /5 L 5 /5 ROM decreased on RUE Tone normal NEURO: CN II - CN XII grossly intact Sensation intact in all extremities Coordination impaired. No tremor noted in 4 extremities. Naming and repetition intact. Follows 2 step commands. Aphasia not appreciated Dysarthria present Dysphagia not appreciated Neglect not appreciated POSTURE and GAIT: Sitting posture good. Balance appears reasonable at times. Gait unsteady. PSYCH: Alert, oriented x3, affect appears euthymic. - Constitutional Vitals: Vital Signs - 12hr 10/20/19 10/20/19 07:45 08:10 Temperature 36.8 C Pulse Rate 71 Respiratory 18 Rate Blood Pressure 128/89 Blood Pressure 117/76 [Right] O2 Sat by Pulse 97 Oximetry - Allied health notes Allied health notes reviewed: nursing, PT, OT FIMS assessment as documented by PT/OT/ST: Social interaction/Memory/Problem solving Social Interaction FIM Score 5. Supervision (Needs supv. <10%. Needs encouragement to participate.) Memory FIM Score 6. Modified [place](Mild difficulty remembering people/routines.) Problem Solving FIM Score 5. Supervision (Needs cueing <10% to solve routine problems.) Transfers Mode of Locomotion: Wheelchair Bed/Chair/Wheelchair Transfers 5. Supervision (Needs supv. or set-up for FIM Score sliding board, foot rests.) Locomotion- walk/wheelchair Ambulation Distance 10 - Labs CBC & Chem 7: 10/20/19 06:41 10/20/19 06:41 Labs: Laboratory Results - last 72 hr 10/20/19 10/20/19 06:41 06:41 WBC 5.9 RBC 3.50 L Hgb 11.8 Hct 35.5 MCV 101 H MCH 34 H MCHC 33 RDW 12.8 L Plt Count 307 Sodium 139 Potassium 4.1 Chloride 101.8 Carbon Dioxide 22 Anion Gap 19 BUN 9 Creatinine 0.8 Estimated GFR > 60 BUN/Creatinine Ratio 11 Glucose 94 Calcium 9.4 Assessment and Plan Presumed stroke: MRI did not show evidence however patient still has issues with ataxia and dysarthria present past 24 hours. Secondary stroke prevention started. Prognosis and recovery discussed with patient. Dysarthria: Continue speech therapy for improvement. Seizures: Continue Keppra. Seizure precautions. Hypertension: Continue medications and adjust as needed for normotension. Hold for hypotension ADL dysfunction: OT will work on improving ability to perform ADLs (including assistive devices) to increase independence and decrease caregiver burden and improve functional transfers and mobility training. Difficulty walking: PT will work on gait training and proper use of assistive devices and advance as appropriate to use of stairs and outside ambulation on uneven surfaces. Unsteadiness on feet: PT will work on improving static and dynamic sitting and standing balance as well as proper use of assistive devices to decrease risk of falls. Abnormality of gait: PT will work to improve safety and efficiency of gait through neuromotor training and gait training along with instruction on proper use of assistive devices. Debility: PT & OT will work on improving overall functional status to improve participation with ADLs, mobility and social involvement. Fatigue: PT & OT will work on improving endurance through aerobic exercises and therapeutic activity while monitoring patients tolerance for activity and vital signs as needed. Alcohol dependence: Continue thiamine, folate. zoey DESIRDE protocol DVT ppx:lovenox Pain: Continue physical modalities in therapy and pain medications as needed to achieve functional pain control. Sleep: Monitor and address as needed. Bowel: Monitor and address as needed. Appetite: Monitor and address as needed. Discharge planning: Pending therapy progress and care plan meeting. Andrew wilder ontinue discussion with therapy team, SW, patient and family. Restrictions/ Precautions: Falls WB status: FWB Functional Hx: ADLs: Independent with RW Cognition: Independent Mobility: RW Barriers to Discharge: Decreased mobility and ability to perform self care, balance deficits, ataxia, dysarthria Estimated Length of Stay: 14-21 days Discharge Destination: Home alone or possibly facility based pending outcome and financial situation
[2019-10-20] MEDS ORDERED: NAPROXEN 500 MG TAB PO PRN (17:10)
[2019-10-21] MEDS: POTASSIUM CHLORIDE ER 20 MEQ TAB PO SCH ×2 (07:52→21:30)
[2019-10-21] MEDS: FOLIC ACID 1 MG TAB PO SCH (07:52)
[2019-10-21] MEDS: ASPIRIN EC 81 MG TAB PO SCH (07:52)
[2019-10-21] MEDS: amLODIPine 10 MG TAB PO SCH (07:52)
[2019-10-21] MEDS: THIAMINE 100 MG TAB PO SCH (07:53)
[2019-10-21] MEDS: MULTIVITAMINS ,THERAPEUTIC TAB PO SCH (07:53)
[2019-10-21] MEDS: ENOXAPARIN 40 MG/0.4 ML INJ SUB-Q SCH (07:53)
[2019-10-21] MEDS: levETIRAcetam 500 MG TAB PO SCH ×2 (07:53→21:31)
--- NOTE | 2019-10-21 10:51 | Progress Note ---
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 Patient was placed on CIWA protocol. Brain MRI showed advanced atrophy with microvascular ischemic changes but no acute abnormality identified as well. There is also a question of seizures, patient is on Keppra however neuro note was uncertain of this diagnosis. Neurology considered EEG but that is not available in the medical record as of yet. Patient continued having issues with slurred speech and did have generalized weakness. He was evaluated by therapy and determined to be an appropriate candidate for rehabilitation. He lives in an extended stay hotel which presented some hesitation we were assured by optician manager that he would have family support and would have living arrangements taking care of at discharge. Patient was in the hospital for 3 days and only required 1 dose of Ativan. Will monitor for any further signs of withdrawal. Alcohol level at admission was negligible. Continue CIWA. At this point we will consider the patient to have clinical signs of a stroke after examination of him. Dysarthria still present and he does have decreased balance as opposed to previously. We'll start the patient on aspirin 81 mg and continue other secondary stroke prevention protocols. Interval history Patient is participating in therapy and making reasonable progress. Taking rest breaks as needed. +BM. Denies pain, palpitations, dyspnea, cough, N/V, or joint pain. Patient does admit to allover muscle soreness. Attributes this to increased activity with therapy and hurting in muscles he did not know he had. Has not been made better with Tylenol, will give short dose of Aleve to attempt to relieve his muscle soreness and will ask therapy to apply some heat. No signs of withdrawal syndrome so will DC CIWA protocol. Patient also looking to discharge to [facility] or other type facility, have asked that social research assistant come and visit him to give him other options. CVA: no signs of worsening neurologic function. No PSD, spasticity or SHS. Dysarthria: Stable. He is understandable. Seems to be more open to exercises now Seizure: No breakthrough seizure during this stay Hypertension: stable on current meds, no hypotension Unsteadiness on feet: remains a high fall risk. Continue to work to improve Decreased awareness of deficits: Continue to reinforce. Up in room moving around on his own. Alcohol dependence: No doses of ativan given, no signs of withdrawal, DC CIWV protocol Awaiting availability for social research assistant talk with patient about options of discharge. Patient still has significant balance deficits and mobility and ADL deficits that require further work to improve him before he will be able to be independent at home. Barring the ability to get to an [facility] we will continue to work with him as much as possible to improve his independence to ensure a safe discharge. He may not be appropriate for residential facility unless he opts to go for long-term care placement. All records, vitals, labs and medications were reviewed. No other issues per patient, nursing or therapy. Objective - Exam Narrative Exam: MUSCULOSKELETAL SPECIALTY EXAM CONSTITUTIONAL: Well developed, well nourished, appropriately groomed. RIGHT hand dominant. RESPIRATORY: CTAB. no increased work of breathing CARDIOVASCULAR: RRR. no swelling, edema or tenderness in BUE or BLE. All extremities warm. GI: soft, NTTP, nondistended. INTEGUMENTARY: Normal, no lesion, rash, masses or bruising noted in extremities. MUSCULOSKELETAL: BUE and BLE normal without defect, crepitus, subluxation, effusion, arthritic changes or TTP. R 5 /5 L 5 /5 ROM decreased on RUE Tone normal NEURO: CN II - CN XII grossly intact Sensation intact in all extremities Coordination impaired. No tremor noted in 4 extremities. Naming and repetition intact. Follows 2 step commands. Aphasia not appreciated Dysarthria present Dysphagia not appreciated Neglect not appreciated POSTURE and GAIT: Sitting posture good. Balance appears reasonable at times. Gait unsteady at times. PSYCH: Alert, oriented x3, affect appears euthymic. - Constitutional Vitals: Vital Signs - 12hr 10/21/19 10/21/19 06:00 07:50 Temperature 97.7 F Pulse Rate 70 Respiratory 18 18 Rate Blood Pressure 114/81 O2 Sat by Pulse 99 Oximetry - Allied health notes Allied health notes reviewed: nursing, PT, ST, OT FIMS assessment as documented by PT/OT/ST: Social interaction/Memory/Problem solving Social Interaction FIM Score 5. Supervision (Needs supv. <10%. Needs encouragement to participate.) Memory FIM Score 6. Modified [place](Mild difficulty remembering people/routines.) Problem Solving FIM Score 5. Supervision (Needs cueing <10% to solve routine problems.) Transfers Mode of Locomotion: Wheelchair Bed/Chair/Wheelchair Transfers 5. Supervision (Needs supv. or set-up for FIM Score sliding board, foot rests.) Locomotion- walk/wheelchair Ambulation Distance 10 - Labs CBC & Chem 7: 10/20/19 06:41 10/20/19 06:41 Labs: Laboratory Results - last 72 hr 10/20/19 10/20/19 06:41 06:41 WBC 5.9 RBC 3.50 L Hgb 11.8 Hct 35.5 MCV 101 H MCH 34 H MCHC 33 RDW 12.8 L Plt Count 307 Sodium 139 Potassium 4.1 Chloride 101.8 Carbon Dioxide 22 Anion Gap 19 BUN 9 Creatinine 0.8 Estimated GFR > 60 BUN/Creatinine Ratio 11 Glucose 94 Calcium 9.4 Assessment and Plan Presumed stroke: MRI did not show evidence however patient still has issues with ataxia and dysarthria present past 24 hours. Secondary stroke prevention started. Prognosis and recovery discussed with patient. Dysarthria: Continue speech therapy for improvement. Seizures: Continue Keppra. Seizure precautions. Hypertension: Continue medications and adjust as needed for normotension. Hold for hypotension ADL dysfunction: OT will work on improving ability to perform ADLs (including assistive devices) to increase independence and decrease caregiver burden and improve functional transfers and mobility training. Difficulty walking: PT will work on gait training and proper use of assistive devices and advance as appropriate to use of stairs and outside ambulation on uneven surfaces. Unsteadiness on feet: PT will work on improving static and dynamic sitting and standing balance as well as proper use of assistive devices to decrease risk of falls. Abnormality of gait: PT will work to improve safety and efficiency of gait through neuromotor training and gait training along with instruction on proper use of assistive devices. Debility: PT & OT will work on improving overall functional status to improve participation with ADLs, mobility and social involvement. Fatigue: PT & OT will work on improving endurance through aerobic exercises and therapeutic activity while monitoring patients tolerance for activity and vital signs as needed. Alcohol dependence: Continue thiamine, folate. [facility] protocol DVT ppx:lovenox Pain: Continue physical modalities in therapy and pain medications as needed to achieve functional pain control. Sleep: Monitor and address as needed. Bowel: Monitor and address as needed. Appetite: Monitor and address as needed. Discharge planning: Pending therapy progress and care plan meeting. Will continue discussion with therapy team, SW, patient and family. Restrictions/ Precautions: Falls WB status: FWB Functional Hx: ADLs: Independent with RW Cognition: Independent Mobility: RW Barriers to Discharge: Decreased mobility and ability to perform self care, balance deficits, ataxia, dysarthria Estimated Length of Stay: 14-21 days Discharge Destination: Home alone or possibly facility based pending outcome and financial situation
[2019-10-21] MEDS: ACETAMINOPHEN 325 MG TAB PO PRN (20:07)
[2019-10-22] MEDS: levETIRAcetam 500 MG TAB PO SCH ×2 (09:36→21:04)
[2019-10-22] MEDS: ASPIRIN EC 81 MG TAB PO SCH (09:37)
[2019-10-22] MEDS: THIAMINE 100 MG TAB PO SCH (09:37)
[2019-10-22] MEDS: ENOXAPARIN 40 MG/0.4 ML INJ SUB-Q SCH (09:37)
[2019-10-22] MEDS: amLODIPine 10 MG TAB PO SCH (09:37)
[2019-10-22] MEDS: MULTIVITAMINS ,THERAPEUTIC TAB PO SCH (09:37)
[2019-10-22] MEDS: FOLIC ACID 1 MG TAB PO SCH (09:37)
[2019-10-22] MEDS: POTASSIUM CHLORIDE ER 20 MEQ TAB PO SCH ×2 (09:37→21:04)
[2019-10-22] MEDS: ACETAMINOPHEN 325 MG TAB PO PRN (23:13)
[2019-10-23] MEDS: amLODIPine 10 MG TAB PO SCH (09:34)
[2019-10-23] MEDS: MULTIVITAMINS ,THERAPEUTIC TAB PO SCH (09:34)
[2019-10-23] MEDS: FOLIC ACID 1 MG TAB PO SCH (09:34)
[2019-10-23] MEDS: levETIRAcetam 500 MG TAB PO SCH ×2 (09:34→21:05)
[2019-10-23] MEDS: ASPIRIN EC 81 MG TAB PO SCH (09:35)
[2019-10-23] MEDS: ENOXAPARIN 40 MG/0.4 ML INJ SUB-Q SCH (09:35)
[2019-10-23] MEDS: THIAMINE 100 MG TAB PO SCH (09:35)
[2019-10-23] MEDS: POTASSIUM CHLORIDE ER 20 MEQ TAB PO SCH ×2 (09:35→21:05)
--- NOTE | 2019-10-23 09:36 | Progress Note ---
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 Patient was placed on CIWA protocol. Brain MRI showed advanced atrophy with microvascular ischemic changes but no acute abnormality identified as well. There is also a question of seizures, patient is on Keppra however neuro note was uncertain of this diagnosis. Neurology considered EEG but that is not available in the medical record as of yet. Patient continued having issues with slurred speech and did have generalized weakness. He was evaluated by therapy and determined to be an appropriate candidate for rehabilitation. He lives in an extended stay hotel which presented some hesitation we were assured by plant worker that he would have family support and would have living arrangements taking care of at discharge. Patient was in the hospital for 3 days and only required 1 dose of Ativan. Will monitor for any further signs of withdrawal. Alcohol level at admission was negligible. Continue CIWA. At this point we will consider the patient to have clinical signs of a stroke after examination of him. Dysarthria still present and he does have decreased balance as opposed to previously. We'll start the patient on aspirin 81 mg and continue other secondary stroke prevention protocols. Interval history Patient is participating in therapy and making reasonable progress. Taking rest breaks as needed. +BM. Denies pain, palpitations, dyspnea, cough, N/V, or joint pain. Patient does admit to allover muscle soreness. Attributes this to increased activity with therapy and hurting in muscles he did not know he had. Has not been made better with Tylenol, will give short dose of Aleve to attempt to relieve his muscle soreness and will ask therapy to apply some heat. No signs of withdrawal syndrome so will DC CIWA protocol. Patient also looking to discharge to [facility] or other type facility, have asked that social service assistant come and visit him to give him other options. CVA: no signs of worsening neurologic function. No PSD, spasticity or SHS. Dysarthria: Stable. He is understandable. Seems to be more open to exercises now Seizure: No breakthrough seizure during this stay Hypertension: stable on current meds, no hypotension Unsteadiness on feet: remains a high fall risk. Continue to work to improve Decreased awareness of deficits: Continue to reinforce. Up in room moving around on his own. Alcohol dependence: No doses of ativan given, no signs of withdrawal, DC CIWA protocol Awaiting availability for social service assistant talk with patient about options of discharge. Patient still has significant balance deficits and mobility and ADL deficits that require further work to improve him before he will be able to be independent at home. Barring the ability to get to an [facility] we will continue to work with him as much as possible to improve his independence to ensure a safe discharge. He may not be appropriate for [facility] facility unless he opts to go for long-term care placement. Patient discussed in team conference. Making good progress however will still need some assistance. Have discussed with the patient that he needs intermittent supervision and we would prefer that he does not go home completely alone especially considering that he is planning to go to a an extended stay hotel. Was able to talk with the social service assistant and we possibly have an option for him at a transitional living house. We will need to discharge him with a rolling walker, home health PT and OT. Looking to discharge on October 26. All records, vitals, labs and medications were reviewed. No other issues per patient, nursing or therapy. Objective - Exam Narrative Exam: MUSCULOSKELETAL SPECIALTY EXAM CONSTITUTIONAL: Well developed, well nourished, appropriately groomed. RIGHT hand dominant. RESPIRATORY: CTAB. no increased work of breathing CARDIOVASCULAR: RRR. no swelling, edema or tenderness in BUE or BLE. All extremities warm. GI: soft, NTTP, nondistended. INTEGUMENTARY: Normal, no lesion, rash, masses or bruising noted in extremities. MUSCULOSKELETAL: BUE and BLE normal without defect, crepitus, subluxation, effusion, arthritic changes or TTP. R 5 /5 L 5 /5 ROM decreased on RUE Tone normal NEURO: CN II - CN XII grossly intact Sensation intact in all extremities Coordination impaired. No tremor noted in 4 extremities. Naming and repetition intact. Follows 2 step commands. Aphasia not appreciated Dysarthria present Dysphagia not appreciated Neglect not appreciated POSTURE and GAIT: Sitting posture good. Balance appears reasonable at times. Gait improving. PSYCH: Alert, oriented x3, affect appears euthymic. - Constitutional Vitals: Vital Signs - 12hr 10/22/19 10/22/19 10/23/19 22:00 23:13 06:00 Temperature Pulse Rate Respiratory 18 20 Rate Respiratory 20 Rate [Bilateral Distal Back] Respiratory 10 L Rate [Head] Blood Pressure O2 Sat by Pulse Oximetry 10/23/19 07:54 Temperature 98.1 F Pulse Rate 89 Respiratory 18 Rate Respiratory Rate [Bilateral Distal Back] Respiratory Rate [Head] Blood Pressure 114/80 O2 Sat by Pulse 100 Oximetry - Allied health notes Allied health notes reviewed: nursing, PT, ST, OT FIMS assessment as documented by PT/OT/ST: Social interaction/Memory/Problem solving Social Interaction FIM Score 5. Supervision (Needs supv. <10%. Needs encouragement to participate.) Memory FIM Score 6. Modified [place](Mild difficulty remembering people/routines.) Problem Solving FIM Score 5. Supervision (Needs cueing <10% to solve routine problems.) Transfers Mode of Locomotion: Wheelchair Bed/Chair/Wheelchair Transfers 5. Supervision (Needs supv. or set-up for FIM Score sliding board, foot rests.) Locomotion- walk/wheelchair Ambulation Distance 10 Eating Eating FIM Score 6. Modified [place] (Special consistency or uses device.) Dressing-Upper body Patient retrieves clothing Yes items: Upper Body Dressing FIM Score 5. Supv./Set-Up ([place] sets out clothes or applies pros./orth.) Dressing-lower body Patient retrieves clothing Yes items: Lower Body Dressing FIM Score 5. Supv./Set-Up ([place] sets out clothes or applies pros./orth.) - Labs CBC & Chem 7: 10/20/19 06:41 10/20/19 06:41 Assessment and Plan Presumed stroke: MRI did not show evidence however patient still has issues with ataxia and dysarthria present past 24 hours. Secondary stroke prevention started. Prognosis and recovery discussed with patient. Dysarthria: Continue speech therapy for improvement. Seizures: Continue Keppra. Seizure precautions. Hypertension: Continue medications and adjust as needed for normotension. Hold for hypotension ADL dysfunction: OT will work on improving ability to perform ADLs (including assistive devices) to increase independence and decrease caregiver burden and improve functional transfers and mobility training. Difficulty walking: PT will work on gait training and proper use of assistive d evices and advance as appropriate to use of stairs and outside ambulation on uneven surfaces. Unsteadiness on feet: PT will work on improving static and dynamic sitting and standing balance as well as proper use of assistive devices to decrease risk of falls. Abnormality of gait: PT will work to improve safety and efficiency of gait through neuromotor training and gait training along with instruction on proper use of assistive devices. Debility: PT & OT will work on improving overall functional status to improve participation with ADLs, mobility and social involvement. Fatigue: PT & OT will work on improving endurance through aerobic exercises and therapeutic activity while monitoring patients tolerance for activity and vital signs as needed. Alcohol dependence: Continue thiamine, folate. dc CIWA protocol DVT ppx:lovenox Pain: Continue physical modalities in therapy and pain medications as needed to achieve functional pain control. Sleep: Monitor and address as needed. Bowel: Monitor and address as needed. Appetite: Monitor and address as needed. Discharge planning: Pending therapy progress and care plan meeting. Will continue discussion with therapy team, SW, patient and family. Look to discharge on October 26. Restrictions/ Precautions: Falls WB status: FWB Functional Hx: ADLs: Independent with RW Cognition: Independent Mobility: RW Barriers to Discharge: Decreased mobility and ability to perform self care, balance deficits, ataxia, dysarthria Estimated Length of Stay: 14-21 days Discharge Destination: Home alone or possibly facility based pending outcome and financial situation
--- NOTE | 2019-10-23 10:30 | Progress Note ---
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 Patient was placed on CIWA protocol. Brain MRI showed advanced atrophy with microvascular ischemic changes but no acute abnormality identified as well. There is also a question of seizures, patient is on Keppra however neuro note was uncertain of this diagnosis. Neurology considered EEG but that is not available in the medical record as of yet. Patient continued having issues with slurred speech and did have generalized weakness. He was evaluated by therapy and determined to be an appropriate candidate for rehabilitation. He lives in an extended stay hotel which presented some hesitation we were assured by geodetic engineer that he would have family support and would have living arrangements taking care of at discharge. Patient was in the hospital for 3 days and only required 1 dose of Ativan. Will monitor for any further signs of withdrawal. Alcohol level at admission was negligible. Continue CIWA. At this point we will consider the patient to have clinical signs of a stroke after examination of him. Dysarthria still present and he does have decreased balance as opposed to previously. We'll start the patient on aspirin 81 mg and continue other secondary stroke prevention protocols. Interval history Patient is participating in therapy and making reasonable progress. Taking rest breaks as needed. +BM. Denies pain, palpitations, dyspnea, cough, N/V, or joint pain. Excited about possibility of going to transitional living facility. Doing well overall CVA: no signs of worsening neurologic function. No PSD, spasticity or SHS. Dysarthria: Stable. He is understandable. Seems to be more open to exercises now Seizure: No breakthrough seizure during this stay Hypertension: stable on current meds, no hypotension Unsteadiness on feet: remains a high fall risk. Continue to work to improve Decreased awareness of deficits: Continue to reinforce. Up in room moving skylar danielle on his own. Alcohol dependence: No doses of ativan given, no signs of withdrawal, DC CIWA protocol All records, vitals, labs and medications were reviewed. No other issues per patient, nursing or therapy. Objective - Exam Narrative Exam: MUSCULOSKELETAL SPECIALTY EXAM CONSTITUTIONAL: Well developed, well nourished, appropriately groomed. RIGHT hand dominant. RESPIRATORY: CTAB. no increased work of breathing CARDIOVASCULAR: RRR. no swelling, edema or tenderness in BUE or BLE. All extremities warm. GI: soft, NTTP, nondistended. INTEGUMENTARY: Normal, no lesion, rash, masses or bruising noted in extremities. MUSCULOSKELETAL: BUE and BLE normal without defect, crepitus, subluxation, effusion, arthritic changes or TTP. R 5 /5 L 5 /5 ROM decreased on RUE Tone normal NEURO: CN II - CN XII grossly intact Sensation intact in all extremities Coordination impaired. No tremor noted in 4 extremities. Naming and repetition intact. Follows 2 step commands. Aphasia not appreciated Dysarthria present Dysphagia not appreciated Neglect not appreciated POSTURE and GAIT: Sitting posture good. Balance appears reasonable at times. Gait improving. PSYCH: Alert, oriented x3, affect appears euthymic. - Constitutional Vitals: Vital Signs - 12hr 10/22/19 10/23/19 10/23/19 23:13 06:00 07:54 Temperature 98.1 F Pulse Rate 89 Respiratory 18 20 18 Rate Blood Pressure 114/80 O2 Sat by Pulse 100 Oximetry - Allied health notes Allied health notes reviewed: nursing, PT, ST, OT FIMS assessment as documented by PT/OT/ST: Social interaction/Memory/Problem solving Social Interaction FIM Score 5. Supervision (Needs supv. <10%. Needs encouragement to participate.) Memory FIM Score 6. Modified [place](Mild difficulty remembering people/routines.) Problem Solving FIM Score 5. Supervision (Needs cueing <10% to solve routine problems.) Transfers Mode of Locomotion: Wheelchair Bed/Chair/Wheelchair Transfers 5. Supervision (Needs supv. or set-up for FIM Score sliding board, foot rests.) Locomotion- walk/wheelchair Ambulation Distance 10 Eating Eating FIM Score 6. Modified [place] (Special consistency or uses device.) Dressing-Upper body Patient retrieves clothing Yes items: Upper Body Dressing FIM Score 5. Supv./Set-Up ([place] sets out clothes or applies pros./orth.) Dressing-lower body Patient retrieves clothing Yes items: Lower Body Dressing FIM Score 5. Supv./Set-Up ([place] sets out clothes or applies pros./orth.) - Labs CBC & Chem 7: 10/20/19 06:41 10/20/19 06:41 Assessment and Plan Presumed stroke: MRI did not show evidence however patient still has issues with ataxia and dysarthria present past 24 hours. Secondary stroke prevention started. Prognosis and recovery discussed with patient. Dysarthria: Continue speech therapy for improvement. Seizures: Continue Keppra. Seizure precautions. Hypertension: Continue medications and adjust as needed for normotension. Hold for hypotension ADL dysfunction: OT will work on improving ability to perform ADLs (including assistive devices) to increase independence and decrease caregiver burden and improve functional transfers and mobility training. Difficulty walking: PT will work on gait training and proper use of assistive devices and advance as appropriate to use of stairs and outside ambulation on uneven surfaces. Unsteadiness on feet: PT will work on improving static and dynamic sitting and standing balance as well as proper use of assistive devices to decrease risk of falls. Abnormality of gait: PT will work to improve safety and efficiency of gait through neuromotor training and gait training along with instruction on proper use of assistive devices. Debility: PT & OT will work on improving overall functional status to improve participation with ADLs, mobility and social involvement. Fatigue: PT & OT will work on improving endurance through aerobic exercises and therapeutic activity while monitoring patients tolerance for activity and vital signs as needed. Alcohol dependence: Continue thiamine, folate. DVT ppx:lovenox Pain: Continue physical modalities in therapy and pain medications as needed to achieve functional pain control. Sleep: Monitor and address as needed. Bowel: Monitor and address as needed. Appetite: Monitor and address as needed. Discharge planning: Pending therapy progress and care plan meeting. Will continue discussion with therapy team, SW, patient and family. Look to discharge on October 26. Restrictions/ Precautions: Falls WB status: FWB Functional Hx: ADLs: Independent with RW Cognition: Independent Mobility: RW Barriers to Discharge: Decreased mobility and ability to perform self care, balance deficits, ataxia, dysarthria Estimated Length of Stay: 14-21 days Discharge Destination: Home alone or possibly facility based pending outcome and financial situation
[2019-10-23] MEDS: ACETAMINOPHEN 325 MG TAB PO PRN (20:47)
[2019-10-24] MEDS: levETIRAcetam 500 MG TAB PO SCH ×2 (07:44→23:28)
[2019-10-24] MEDS: MULTIVITAMINS ,THERAPEUTIC TAB PO SCH (07:44)
[2019-10-24] MEDS: ASPIRIN EC 81 MG TAB PO SCH (07:44)
[2019-10-24] MEDS: ENOXAPARIN 40 MG/0.4 ML INJ SUB-Q SCH (07:45)
[2019-10-24] MEDS: POTASSIUM CHLORIDE ER 20 MEQ TAB PO SCH ×2 (07:45→23:28)
[2019-10-24] MEDS: THIAMINE 100 MG TAB PO SCH (07:45)
[2019-10-24] MEDS: FOLIC ACID 1 MG TAB PO SCH (07:45)
[2019-10-24] MEDS: amLODIPine 10 MG TAB PO SCH (07:45)
[2019-10-24] MEDS: ACETAMINOPHEN 325 MG TAB PO PRN (15:38)
[2019-10-25] MEDS: MULTIVITAMINS ,THERAPEUTIC TAB PO SCH (08:17)
[2019-10-25] MEDS: POTASSIUM CHLORIDE ER 20 MEQ TAB PO SCH ×2 (08:17→22:12)
[2019-10-25] MEDS: FOLIC ACID 1 MG TAB PO SCH (08:17)
[2019-10-25] MEDS: ENOXAPARIN 40 MG/0.4 ML INJ SUB-Q SCH (08:17)
[2019-10-25] MEDS: THIAMINE 100 MG TAB PO SCH (08:17)
[2019-10-25] MEDS: ASPIRIN EC 81 MG TAB PO SCH (08:17)
[2019-10-25] MEDS: levETIRAcetam 500 MG TAB PO SCH ×2 (08:17→22:12)
[2019-10-25] MEDS: amLODIPine 10 MG TAB PO SCH (08:17)
[2019-10-25 17:25] LABS: BUN/Creatinine Ratio 11; Blood Urea Nitrogen 11 mg/dL (9-20); Calcium 9.7 mg/dL (8.4-10.2); Hemolysis Index 1
[2019-10-26] MEDS: POTASSIUM CHLORIDE ER 20 MEQ TAB PO SCH (07:24)
[2019-10-26] MEDS: FOLIC ACID 1 MG TAB PO SCH (07:24)
[2019-10-26] MEDS: THIAMINE 100 MG TAB PO SCH (07:24)
[2019-10-26] MEDS: amLODIPine 10 MG TAB PO SCH (07:24)
[2019-10-26] MEDS: MULTIVITAMINS ,THERAPEUTIC TAB PO SCH (07:24)
[2019-10-26] MEDS: ASPIRIN EC 81 MG TAB PO SCH (07:24)
[2019-10-26] MEDS: levETIRAcetam 500 MG TAB PO SCH (07:25)
[2019-10-26] MEDS: ENOXAPARIN 40 MG/0.4 ML INJ SUB-Q SCH (07:33)
[2019-10-26 08:37] VITALS: BP 109/78
--- NOTE | 2019-10-26 10:56 | Discharge Summary ---
Providers - Providers Date of Admission: 10/06/19 18:44 Date of discharge: 10/26/19 Attending physician: TOBY PEDERSEN III, MD 10/06/19 16:41 Occupational Therapy Evaluate and Treat [CONS] Routine Comment: Reason For Exam: ADL dysfunction Physical Therapy Evaluation and Treat [CONS] Routine Comment: Reason For Exam: Mobility Dysfunction Speech Therapy Evaluation and Treat [CONS] Routine Reason For Exam: dysarthria 10/06/19 16:47 Consult to Case Management [CONS] Routine Services Needed at Discharge: Home Health Services Notified:: cm notified Primary care physician: COUNTERPERSON Hospitalization Reason for admission: CVA Condition: Good Hospital course: 59-year-old male who developed worsening dizziness and slurred speech over the past 24 hours and 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 Patient was placed on CIWA protocol. Brain MRI showed advanced atrophy with microvascular ischemic changes but no acute abnormality identified as well. There is also a question of seizures, patient is on Keppra however neuro note was uncertain of this diagnosis. Neurology considered EEG but that is not available in the medical record as of yet. Patient continued having issues with slurred speech and did have generalized weakness. He was evaluated by therapy and determined to be an appropriate candidate for rehabilitation. He lives in an extended stay hotel which presented some hesitation we were assured by chief of internal medicine that he would have family support and would have living arrangements taking care of at discharge. Patient was in the hospital for 3 days and only required 1 dose of Ativan. Will monitor for any further signs of withdrawal. Alcohol level at admission was negligible. Continue CIWA. At this point we will consider the patient to have clinical signs of a stroke after examination of him. Dysarthria still present and he does have decreased balance as opposed to previously. We'll start the patient on aspirin 81 mg and continue other secondary stroke prevention protocols. Patient participated in therapy and did fairly well. At time of discharge he is supervision for ADLs. He was able ambulate using a wide-based quad cane with standby assist for greater than household distances. Speech has improved however he still has some dysarthria. CVA: no signs of worsening neurologic function. No signs of post stroke depression, spasticity or shoulder-hand syndrome. MRI did not show evidence however patient still has issues with ataxia and dysarthria present past 24 hours. Secondary stroke prevention started. Prognosis and recovery discussed with patient. Patient will need to follow-up with neurology. No driving until cleared by neurology. Dysarthria: Improved. He is understandable. Seizure: No breakthrough seizure during this stay Hypertension: stable on current meds, no hypotension Unsteadiness on feet: remains a fall risk. Continue to work to improve Decreased awareness of deficits: Continue to reinforce. Up in room moving around on his own. Alcohol dependence: Continue thiamine, folate. No doses of ativan given, no signs of withdrawal, DC CIWA protocol. Disposition: [id number] HOME UNDER HOME HL Time spent for discharge: Greater than 35 minutes Core Measure Documentation - Palliative Care Palliative Care/ Comfort Measures: Not Applicable - Core Measures Any of the following diagnoses?: stroke - Stroke Discharge Requirements Statin for LDL = or >70 mg/dl on DC: Yes Anticoag for atrial fib/atrial flutter: Not Applicable Antithrombotic for ischemic stroke: Yes Exam - Physical Exam Narrative exam: MUSCULOSKELETAL SPECIALTY EXAM CONSTITUTIONAL: Well developed, well nourished, appropriately groomed. RIGHT hand dominant. RESPIRATORY: CTAB. no increased work of breathing CARDIOVASCULAR: RRR. no swelling, edema or tenderness in BUE or BLE. All extremities warm. GI: soft, NTTP, nondistended. INTEGUMENTARY: Normal, no lesion, rash, masses or bruising noted in extremities. Bruising on abdomen from Lovenox. MUSCULOSKELETAL: BUE and BLE normal without defect, crepitus, subluxation, effusion, arthritic changes or TTP. R 5 /5 L 5 /5 ROM decreased on RUE Tone normal NEURO: CN II - CN XII grossly intact Sensation intact in all extremities Coordination impaired but improved. No tremor noted in 4 extremities. Naming and repetition intact. Follows 2 step commands. Aphasia not appreciated Dysarthria present Dysphagia not appreciated Neglect not appreciated POSTURE and GAIT: Sitting posture good. Balance appears reasonable at times. Gait improving. Still ataxic at times. Remains a fall risk PSYCH: Alert, oriented x3, affect appears euthymic. - Constitutional Vitals: Temp Pulse Resp BP Pulse Ox 97.6 F 79 18 109/78 98 10/26/19 07:28 10/26/19 07:28 10/26/19 07:28 10/26/19 07:10/26/19 07:28 Plan Activity: no driving until cleared by PCP, fall precautions Diet: low salt Special Instructions: record daily BP diary, physical therapy, occupational therapy, home health RN Durable Medical Equipment Needed Upon Discharge: Walker-Rolling Care Plan Goals: Patient will need to follow-up with neurology, PCP. Has not had any alcohol since being in the hospital and did not show any signs of withdrawal. Would recommend continued alcohol cessation. He remains a fall risk and needs some supervision with mobility. Plan to discharge to transitional housing vs extended stay. Plan of Treatment: Will need CBC and BMP checked by PCP in 1 - 2 weeks. Follow up with: PRIMARY CAREMD [Primary Care Provider] - 7 Days RIDDHI MEHTA MD [Staff Physician] - 14 Days Prescriptions: AtorvaSTATin [Lipitor] 40 mg PO QHS #30 tablet amLODIPine 10 mg PO QDAY #30 tablet Folic Acid [Folvite] 1 mg PO QDAY #30 tablet Aspirin EC [Halfprin EC] 81 mg PO QDAY #30 tablet Potassium Chloride [K-Dur] 20 meq PO BID #60 tablet levETIRAcetam [Keppra TAB] 750 mg PO BID #60 tablet Multivitamin,Therapeutic [Thera] 1 each PO DAILY #30 tablet Thiamine [Vitamin B-1] 100 mg PO QDAY #30 tablet
== END 2019-10-26 12:40 | disposition home health service (06) | DRG 66 ==
LOC: 3A 16:39 → UNDOADMIN 16:39 → 3B 18:44
PROVIDERS: ADMIT Physical Medicine & Rehabilitation; ATTEND Physical Medicine & Rehabilitation
DX: I63.9 Cerebral infarction, unspecified (principal); I10 Essential (primary) hypertension; F17.200 Nicotine dependence, unspecified, uncomplicated; R47.1 Dysarthria and anarthria; F10.20 Alcohol dependence, uncomplicated; R53.81 Other malaise; R56.9 Unspecified convulsions; Z82.49 Family history of ischemic heart disease and other diseases of the circulatory system; Z83.3 Family history of diabetes mellitus; Z79.899 Other long term (current) drug therapy
CPT/HCPCS: 36415; 80048; 80053; 85007; 85025; 85027; G0378; G0515; A9270-GY; J1650